=== PATIENT | female | born 1965 | race Caucasian/White ===

== ENCOUNTER 2018-04-15 17:09 | Observation (INO) ==
--- NOTE | 2018-04-15 17:38 | Emergency Department Note ---
Disposition Clinical Impression: Chest pain Qualifiers: Chest pain type: other chest pain Qualified Code(s): R07.89 - Other chest pain Disposition: Admitted As Inpatient Condition: Good Time of Disposition: 05:36 General Adult HPI - General Chief complaint: ED Chest Pain Stated complaint: CP Time Seen by Provider: 04/15/18 17:16 Source: patient, EMS Mode of arrival: EMS Limitations: no limitations Nursing Notes Reviewed: Yes Vital Signs Reviewed: Yes - History of Present Illness HPI Narrative: 52-year-old female presenting to the emergency department chief complaint of chest pain. Patient states approximately 2 hours ago she was at a [employer] lifting heavy boxes and moving around when she started having crushing substernal chest pain radiating into her left arm. Patient states she had some weakness but denies any nausea, vomiting or diaphoresis. Patient is chest pain- free at this time. Patient does state she has a significant past medical history of hypertension, hyperglycemia not on any oral medications and coronary artery disease. Denies any stent placement but does state approximately a year and a half ago she had a cardiac catheterization done that showed multiple small plaques in her vessels. Patient took a full dose aspirin at home prior to arrival. Pain Scale: 6 - Related Data Home Medications Medication Instructions Recorded Confirmed RX: Lisinopril/Hydrochlorothiazide 1 each PO DAILY 01/02/15 04/16/18 [Zestoretic 10-12.5 mg Tablet] RX: clonazePAM [Klonopin] 0.5 mg PO QID PRN MDD PRN 01/02/15 04/16/18 RX: Atorvastatin Calcium [Lipitor] 80 mg PO HS 03/26/16 04/16/18 RX: Aspirin 81 mg PO DAILY 04/09/16 04/16/18 RX: Fluticasone/Salmeterol [Advair 1 each IH PRN PRN 09/06/16 04/16/18 100-50 Diskus] RX: Nitroglycerin [Nitrostat] 0.4 mg SL Q3-5MIN PRN 09/06/16 04/16/18 RX: Omeprazole [PriLOSEC] 40 mg PO DAILY 09/06/16 04/16/18 Cetirizine HCl [All Day Allergy] 10 mg PO DAILY 12/31/16 04/16/18 Gabapentin [Neurontin] 800 mg PO TID 12/31/16 04/16/18 DULoxetine [Cymbalta] 30 mg PO DAILY 04/16/18 04/16/18 RX: Albuterol Sulfate [Albuterol 2 puff IH PRN PRN 04/16/18 04/16/18 Inhaler] RX: Lansoprazole [Prevacid] 40 mg PO DAILY 04/16/18 04/16/18 Allergies Allergy/AdvReac Type Severity Reaction Status Date / Time ciprofloxacin Allergy Hives Verified 11/08/16 13:28 rosuvastatin Allergy Cramping Verified 11/08/16 13:28 of the Muscles cefdinir [From Omnicef] AdvReac Rash Verified 11/08/16 13:28 omeprazole AdvReac Rash Verified 11/08/16 13:28 Panax ginseng AdvReac restless Verified 11/08/16 13:28 legs pantoprazole AdvReac Nausea Verified 11/08/16 13:28 ranitidine AdvReac See Verified 11/08/16 13:28 Comments Sulfa (Sulfonamide AdvReac Itching Verified 11/08/16 13:28 Antibiotics) All systems ED: reviewed and negative except as stated. Constitutional: Denies: fever Eyes: Reports: as per HPI ENT ED: Reports: as per HPI Cardiovascular: Reports: chest pain Respiratory: Denies: wheezes Gastrointestinal: Denies: abdominal pain, vomiting Genitourinary: Reports: as per HPI Musculoskeletal: Reports: as per HPI Integumentary: Reports: as per HPI Neurological: Reports: as per HPI Psychiatric: Reports: as per HPI Endocrine: Reports: as per HPI Hematological/Lymphatic: Reports: as per HPI Allergic/Immunologic: Reports: as per HPI Past Medical History - Past Medical History Attestation: Yes The following information was validated with the patient. 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 Absent: scleral icterus, conjunctival injection - ENT ENT exam: mucous membranes moist - Neck Neck exam: Present: full ROM - Chest Chest inspection: Present: symmetric chest wall rise. Absent: tenderness - Respiratory Respiratory exam: Present: normal lung sounds bilaterally. Absent: respiratory distress, wheezes - Cardiovascular Cardiovascular exam: Present: regular rate, normal rhythm, normal heart sounds - Abdominal Exam Abdominal exam: Present: soft, Non-Tender. Absent: distention, guarding, rebou nd - Extremities Exam Extremities exam: Present: full ROM - Neurological Exam Neurological exam: Present: alert, oriented X3 - Psychiatric Psychiatric exam: Present: normal affect, normal mood - Skin Skin exam: Present: warm, intact Course Course Narrative: 52-year-old female presenting for chest pain. At this time patient is chest pain-free. She is alert and oriented 3 and hemodynamically stable. He does have significant coronary artery disease, hypertension and obesity. Due to her history we will perform a chest pain rule out plan to admit her for further evaluation. Pending results. Patient agrees with this plan. - Reevaluation(s) Reevaluation #1: Patient's laboratory analysis benign at this time. Due to concerning story, history of cardiac disease and hypertension along with exertional chest pain we will plan to admit the patient for further chest pain rule out. Patient means alert and oriented 3 and hemodynamically stable. Remains chest pain-free. Patient agrees with this plan. I spoke with the hospitalist on-call who agrees to accept the patient at this time. Vital Signs Temperature 98.9 F 04/15/18 17:17 Pulse Rate 67 04/15/18 17:17 Respiratory Rate 18 04/15/18 17:17 Blood Pressure 130/86 04/15/18 17:17 O2 Sat by Pulse Oximetry 99 04/15/18 17:17 Temperature 97.8 F 04/16/18 04:26 Pulse Rate 58 04/16/18 04:26 Respiratory Rate 16 04/16/18 04:26 Blood Pressure 134/85 04/16/18 04:26 O2 Sat by Pulse Oximetry 98 04/16/18 04:26 Oxygen Delivery Oxygen Delivery Room Air Medical Decision Making - Lab Data Result diagrams: 04/15/18 17:38 04/15/18 17:38 Lab Results 04/15/18 04/15/18 Range/Units 17:38 17:38 WBC 10.4 (4.3-11.1) K/mcL RBC 4.30 (3.82-4.97) M/mcL Hgb 13.1 (11.5-15.4) g/dL Hct 39.6 (35.3-44.9) % MCV 92.1 (83.0-100.0) fL MCH 30.5 (28.0-33.3) pg MCHC 33.1 (31.6-35.5) g/dL RDW 13.2 (11.5-14.5) % Plt Count 226 (140-400) K/mcL MPV 10.9 (9.4-12.4) fL Immature Gran % 0.4 (0-4) % Seg Neutrophils % 57.0 % Lymphocytes % 35.2 % Monocytes % 5.2 % Eosinophils % 1.6 % Basophils % 0.6 % Neutrophils # 6.0 (1.6-8.9) K/mcL Lymphocytes # 3.7 (0.6-4.6) K/mcL Monocytes # 0.5 (0.0-1.3) K/mcL Eosinophils # 0.2 (0.0-0.6) K/mcL Basophils # 0.1 (0.0-0.2) K/mcL Sodium 136 (136-145) mEq/L Potassium 3.8 (3.5-5.1) mEq/L Chloride 102 (98-107) mEq/L Carbon Dioxide 28 (23-29) mEq/L BUN 15 (6-20) mg/dL Creatinine 0.71 (0.60-1.20) mg/dL Est GFR ( Amer) > 60 (> 60) Est GFR (Non-Af Amer) > 60 (> 60) BUN/Creatinine Ratio 21 (6-26) Glucose 129 H (70-105) mg/dL Calculated Osmolality 285 (280-300) Calcium 9.3 (8.6-10.3) mg/dL Troponin I < 0.03 (< 0.04) ng/mL - EKG Data EKG #1 EKG attestation: Yes I reviewed and interpreted this EKG. EKG results narrative: Sinus rhythm. Left ventricular hypertrophy. 69 bpm. TX interval 171, QRS 111, QTC 472. No sign of acute ST segment elevation or ischemia. Compared to previous EKG completed on 08/19/2017 no significant changes noted Attestation Statement - Attestation Attestation: I, Que Veras DO, examined this patient [id number] and my medical decision-making was reviewed with Dr. Nela Oneill, Resident Physician. I agree with the documented findings, disposition and treatment plan as described except to the extent set forth below. Please see my progress notes for details.
[2018-04-15 17:55] LABS: Basophils # 0.1 K/mcL (0.0-0.2); Basophils % 0.6 %; Eosinophils # 0.2 K/mcL (0.0-0.6); Eosinophils % 1.6 %; Hematocrit 39.6 % (35.3-44.9); Hemoglobin 13.1 g/dL (11.5-15.4); Immature Granulocytes % 0.4 % (0-4); Lymphocytes # 3.7 K/mcL (0.6-4.6); Lymphocytes % 35.2 %; Mean Corpuscular HGB Conc 33.1 g/dL (31.6-35.5); Mean Corpuscular Hemoglobin 30.5 pg (28.0-33.3); Mean Corpuscular Volume 92.1 fL (83.0-100.0); Mean Platelet Volume 10.9 fL (9.4-12.4); Monocytes # 0.5 K/mcL (0.0-1.3); Monocytes % 5.2 %; Platelet Count 226 K/mcL (140-400); Red Cell Distribution Width 13.2 % (11.5-14.5)
[2018-04-15 18:15] LABS: BUN/Creatinine Ratio 21 (6-26); Blood Urea Nitrogen 15 mg/dL (6-20); Calcium 9.3 mg/dL (8.6-10.3); Carbon Dioxide 28 mEq/L (23-29); Chloride 102 mEq/L (98-107); Glucose 129 mg/dL (70-105); Osmolality,Calculated 285 (280-300); Potassium 3.8 mEq/L (3.5-5.1); Sodium 136 mEq/L (136-145); Troponin I < 0.03 ng/mL (< 0.04); eGFR For Non-African Americans > 60 (> 60)
--- NOTE | 2018-04-15 18:52 | Emergency Department Note ---
Disposition Clinical Impression: Chest pain Qualifiers: Chest pain type: other chest pain Qualified Code(s): R07.89 - Other chest pain Disposition: Admitted As Inpatient Condition: Good Time of Disposition: 05:36 General Adult HPI - General Chief complaint: ED Chest Pain Stated complaint: CP Time Seen by Provider: 04/15/18 17:16 Source: patient, EMS Mode of arrival: EMS Limitations: no limitations - History of Present Illness Pain Scale: 6 - Related Data Home Medications Medication Instructions Recorded Confirmed RX: Lisinopril/Hydrochlorothiazide 1 each PO DAILY 01/02/15 04/16/18 [Zestoretic 10-12.5 mg Tablet] RX: clonazePAM [Klonopin] 0.5 mg PO QID PRN MDD PRN 01/02/15 04/16/18 RX: Atorvastatin Calcium [Lipitor] 80 mg PO HS 03/26/16 04/16/18 RX: Aspirin 81 mg PO DAILY 04/09/16 04/16/18 RX: Fluticasone/Salmeterol [Advair 1 each IH PRN PRN 09/06/16 04/16/18 100-50 Diskus] RX: Nitroglycerin [Nitrostat] 0.4 mg SL Q3-5MIN PRN 09/06/16 04/16/18 RX: Omeprazole [PriLOSEC] 40 mg PO DAILY 09/06/16 04/16/18 Cetirizine HCl [All Day Allergy] 10 mg PO DAILY 12/31/16 04/16/18 Gabapentin [Neurontin] 800 mg PO TID 12/31/16 04/16/18 DULoxetine [Cymbalta] 30 mg PO DAILY 04/16/18 04/16/18 RX: Albuterol Sulfate [Albuterol 2 puff IH PRN PRN 04/16/18 04/16/18 Inhaler] RX: Lansoprazole [Prevacid] 40 mg PO DAILY 04/16/18 04/16/18 Allergies Allergy/AdvReac Type Severity Reaction Status Date / Time ciprofloxacin Allergy Hives Verified 11/08/16 13:28 rosuvastatin Allergy Cramping Verified 11/08/16 13:28 of the Muscles cefdinir [From Omnicef] AdvReac Rash Verified 11/08/16 13:28 omeprazole AdvReac Rash Verified 11/08/16 13:28 Panax ginseng AdvReac restless Verified 11/08/16 13:28 legs pantoprazole AdvReac Nausea Verified 11/08/16 13:28 ranitidine AdvReac See Verified 11/08/16 13:28 Comments Sulfa (Sulfonamide AdvReac Itching Verified 11/08/16 13:28 Antibiotics) Constitutional: Denies: fever Eyes: Reports: as per HPI ENT ED: Reports: as per HPI Cardiovascular: Reports: chest pain Respiratory: Denies: wheezes Gastrointestinal: Denies: abdominal pain, vomiting Genitourinary: Reports: as per HPI Musculoskeletal: Reports: as per HPI Integumentary: Reports: as per HPI Neurological: Reports: as per HPI Psychiatric: Reports: as per HPI Endocrine: Reports: as per HPI Hematological/Lymphatic: Reports: as per HPI Allergic/Immunologic: Reports: as per HPI Past Medical History - Past Medical History Medical history: Reports: asthma, COPD, coronary artery disease, diabetes, GERD, hyperlipidemia, hypertension Surgical history: Reports: hysterectomy, other Psychiatric history: Reports: anxiety, depression 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 - Social History Smoking Status: Current every day smoker Smokeless Tobacco Status: No Alcohol use: Reports: none Drug use: Reports: none Physical Exam - General Limitations: no limitations General appearance: alert, in no apparent distress Course Vital Signs Temperature 98.9 F 04/15/18 17:17 Pulse Rate 67 04/15/18 17:17 Respiratory Rate 18 04/15/18 17:17 Blood Pressure 130/86 04/15/18 17:17 O2 Sat by Pulse Oximetry 99 04/15/18 17:17 Temperature 97.8 F 04/16/18 04:26 Pulse Rate 58 04/16/18 04:26 Respiratory Rate 16 04/16/18 04:26 Blood Pressure 134/85 04/16/18 04:26 O2 Sat by Pulse Oximetry 98 04/16/18 04:26 Oxygen Delivery Oxygen Delivery Room Air Medical Decision Making - Lab Data Result diagrams: 04/15/18 17:38 04/15/18 17:38 Lab Results 04/15/18 04/15/18 Range/Units 17:38 17:38 WBC 10.4 (4.3-11.1) K/mcL RBC 4.30 (3.82-4.97) M/mcL Hgb 13.1 (11.5-15.4) g/dL Hct 39.6 (35.3-44.9) % MCV 92.1 (83.0-100.0) fL MCH 30.5 (28.0-33.3) pg MCHC 33.1 (31.6-35.5) g/dL RDW 13.2 (11.5-14.5) % Plt Count 226 (140-400) K/mcL MPV 10.9 (9.4-12.4) fL Immature Gran % 0.4 (0-4) % Seg Neutrophils % 57.0 % Lymphocytes % 35.2 % Monocytes % 5.2 % Eosinophils % 1.6 % Basophils % 0.6 % Neutrophils # 6.0 (1.6-8.9) K/mcL Lymphocytes # 3.7 (0.6-4.6) K/mcL Monocytes # 0.5 (0.0-1.3) K/mcL Eosinophils # 0.2 (0.0-0.6) K/mcL Basophils # 0.1 (0.0-0.2) K/mcL Sodium 136 (136-145) mEq/L Potassium 3.8 (3.5-5.1) mEq/L Chloride 102 (98-107) mEq/L Carbon Dioxide 28 (23-29) mEq/L BUN 15 (6-20) mg/dL Creatinine 0.71 (0.60-1.20) mg/dL Est GFR ( Amer) > 60 (> 60) Est GFR (Non-Af Amer) > 60 (> 60) BUN/Creatinine Ratio 21 (6-26) Glucose 129 H (70-105) mg/dL Calculated Osmolality 285 (280-300) Calcium 9.3 (8.6-10.3) mg/dL Troponin I < 0.03 (< 0.04) ng/mL Attestation Statement - Attestation Attestation: I, Que Veras DO, examined this patient [id number] and my medical decision-making was reviewed with Dr. Nela Oneill , Resident Physician. I agree with the documented findings, disposition and treatment plan as described except to the extent set forth below. Please see my progress notes for details. 52-year-old female presents emergency room for evaluation of chest pain that is in the anterior left chest wall. Symptoms are brought on by exertion . Patient was evaluated one year ago cardiac catheterization and had a 20% lesion in the LAD. Denies any symptoms up until the events here within the last week. She is under a great deal of stress. Currently, the patient is denying chest pain. She is denying shortness of breath headache vision changes nausea vomiting or diarrhea. Denies any fevers or chills. She has not fallen or injured herself. She is otherwise in no distress. Patient is alert sitting upright in the bed. Lungs are clear. Heart is regular. Abdomen is soft. No pulsatile masses or lesions are noted. Extremities appear to be normal. Patient will have cardiac evaluation completed today with CBC chemistry troponin and BNP. Chest x-ray will be resulted as well. Aspirin will be given. Patient does have moderate risk heart score as well as no recent evaluation for cardiac related issues. Disposition to be determined once full workup and treatment course have been established. See detailed documentation the physical exam, medical intervention, medical decision-making and disposition in the resident physician's note. No critical care provider the patient's treatment course at this time. 1845 Labs otherwise unremarkable. Troponin is negative. Patient will be discussed with the hospitalist for continuation of care in the inpatient setting with possible stress test versus echocardiogram. Patient's EKG is stable. We will continue to monitor here until hospitalist has been contacted admission processes established.
[2018-04-15] MEDS ORDERED: *HR* HYDROcodone/Acet 5/325 mg TABLET PO PRN (20:47)
[2018-04-15] MEDS ORDERED: Naloxone 0.4 MG/ML INJ IVP PRN (20:47)
[2018-04-15] MEDS ORDERED: Acetaminophen 325 MG TABLET PO PRN (20:47)
[2018-04-15] MEDS ORDERED: D5% in Water 1,000 ML IVC PRN (20:59)
[2018-04-15] MEDS ORDERED: *HR* Dextrose 50 % in Water (Syg) 50 ML SYRINGE IVP PRN (20:59)
[2018-04-15] MEDS ORDERED: Dextrose Gel 15 GM/37.5 ML TUBE PO PRN ×2 (20:59)
[2018-04-15] MEDS ORDERED: Insulin LISPRO 300 UNITS/3 ML VIAL SQ SCH (21:00)
--- NOTE | 2018-04-15 21:29 | Internal Med History&Physical ---
Date of Encounter: 04/15/18 Time of Encounter: 20:00 Internal Medicine - H&P: HPI Chief complaint: CP Admitted From: Emergency Dept Plans for Post Hospital Care: Home History of present illness: Ms. Rodarte is a 52 year old female w/PMH of asthma, COPD, CAD, diabetes controlled with diet, GERD, HLD, HTN, current tobacco abuse, chronic back pain r/t degenerative disc disease, anxiety, and depression presents from the ED w/CC of CP that began at aprox 14:30 today when pt. was lifting boxes at a local food bank. Pt. reports pain as sharp and stabbing in her left chest that was intermittent with radiation to her left shoulder. Accompanying symptoms: Headache. Aggravating factor: Exertion. Alleviating factors: None. Patient reports cardiac catheterization previously on 09/06/16 without stent placement. Patient reported 20% blockage at the time. Patient denies recent illness, fever, chills, nausea, vomiting, diaphoresis, changes in vision, unusual bleeding, abdominal pain, diarrhea, constipation, shortness of breath, cough, chest congestion, dizziness, lightheadedness, numbness, tingling, pre-syncope, or syncope. Past Med Surg Social Fam HX - Past Medical History Source: patient, old records reviewed, obtained from family Medical history: asthma, COPD, coronary artery disease, diabetes, GERD, hyperlipidemia, hypertension Additional medical history: SLEEP APNEA Psychiatric history: anxiety, depression - Past Surgical History Surgical History: hysterectomy (Partial), other Additional surgical history: SINUS SURGERY. carpal tunnel surgery - Social History Smoking Status: Current every day smoker Packs per day: 1 PPD Smokeless Tobacco Status: No Alcohol use: none Drug use: none Current living situation: Home, With Family Activity Level: Independent ambulation Recent Out of Country Travel Within the Last 8 Weeks: No Exposure or Possible Exposure to Illness During Travel: No - Family History Father Race: Family Member Ethnicity: Non- Living Status: Still Living Hx Family Cardiac Disorders: Yes (Aneurysm, HLD, HTN) Mother Race: Family Member Ethnicity: Non- Living Status: Still Living Hx Family Cardiac Disorders: Yes (Stents x2, CAD, HLD, HTN) Hx Family Genitourinary Disorders: Yes (CKD) Hx Family Endocrine Disorder: Yes (DM) Brother Race: Family Member Ethnicity: Non- Living Status: Still Living Hx Family Cardiac Disorders: Yes (HTN, HLD) Hx Family GI Disorders: Yes (GERD) Internal Medicine - H&P: Meds Lisinopril/Hydrochlorothiazide [Zestoretic 10-12.5 mg Tablet] 1 each PO QAM 01/02/15 [History] clonazePAM [Klonopin] 1 mg PO QID PRN 01/02/15 [History] Albuterol Sulfate [Albuterol Inhaler] 2 puff IH Q4HR #1 hfa.aer.ad 05/29/15 [Rx] Atorvastatin Calcium [Lipitor] 80 mg PO HS 03/26/16 [History] Gabapentin [Neurontin] 900 mg PO TID 03/26/16 [History] Aspirin 81 mg PO DAILY 04/09/16 [History] Fluticasone/Salmeterol [Advair 100-50 Diskus] 1 each IH DAILY 09/06/16 [History] HYDROcodone/Acet 10/325 mg [[place] 10-325 mg] 1 tab PO Q6HR PRN 09/06/16 [History] Isosorbide MONOnitrate (24 HR) [Imdur] 30 mg PO DAILY #30 tab.er.24h 09/06/16 [Rx] Nitroglycerin [Nitrostat] 0.4 mg SL Q3-5MIN PRN 09/06/16 [History] Omeprazole [PriLOSEC] 40 mg PO DAILY 09/06/16 [History] Ubidecarenone [Coq10] 400 mg PO DAILY 09/06/16 [History] Lansoprazole [Prevacid] 15 mg PO BID #30 tab.rap.dr 12/24/16 [Rx] Ondansetron HCl [Zofran] 4 mg PO TID #21 tablet 12/24/16 [Rx] Cetirizine HCl [All Day Allergy] 10 mg PO DAILY 12/31/16 [History] FLUoxetine HCl [PROzac] 20 mg PO DAILY 12/31/16 [History] Gabapentin [Neurontin] 800 mg PO TID 12/31/16 [History] Metoprolol XL (24 HR) Succ [Toprol XL] 25 mg PO DAILY 12/31/16 [History] Naproxen [Naprosyn] 500 mg PO BID #10 tablet 07/02/17 [Rx] Albuterol Sulfate [Albuterol Inhaler] 2 puff IH Q4HR #1 hfa.aer.ad 08/19/17 [Rx] Azithromycin [Azithromycin 6-Tab Pack] 250 mg PO PER PKG DI #6 tab 08/19/17 [Rx] Ipratropium/Albuterol Neb [Duoneb] 3 ml IH Q6HR #120 vial.neb 08/19/17 [Rx] predniSONE [PredniSONE] 60 mg PO DAILY 5 Days tablet 08/19/17 [Rx] Allergy/AdvReac Type Severity Reaction Status Date / Time ciprofloxacin Allergy Hives Verified 11/08/16 13:28 rosuvastatin Allergy Cramping Verified 11/08/16 13:28 of the Muscles cefdinir [From Omnicef] AdvReac Rash Verified 11/08/16 13:28 omeprazole AdvReac Rash Verified 11/08/16 13:28 Panax ginseng AdvReac restless Verified 11/08/16 13:28 legs pantoprazole AdvReac Nausea Verified 11/08/16 13:28 ranitidine AdvReac See Verified 11/08/16 13:28 Comments Sulfa (Sulfonamide AdvReac Itching Verified 11/08/16 13:28 Antibiotics) All Systems PM: A 10-system review of systems was performed and is negative for pertinent findings except as documented above in the HPI. - Constitutional Constitutional: as per HPI, no chills, no fever(s), no night sweats - EENT Eyes: no change in vision, no discharge, no pain, no photophobia Ears: no ear discharge, no ear pain, no tinnitus Nose, mouth and throat: no dysphagia, no nasal discharge, no neck pain, no sore throat - Breasts Breasts: as per HPI - Cardiovascular Cardiovascular ROS IM: as per HPI, chest pain, no diaphoresis, no dyspnea, no lightheadedness, no palpitations, no syncope - Respiratory Respiratory: no cough, no dyspnea, no wheezing, no excessive phlegm production - Gastrointestinal Gastrointestinal: no abdominal pain, no diarrhea, no hematemesis, no hematochezia, no melena, no nausea, no vomiting - Genitourinary Genitourinary: no change in urinary stream, no dysuria, no flank pain, no hematuria Menstruation: as per HPI, post hysterectomy (Partial) - Musculoskeletal Musculoskeletal ROS IM: as per HPI, back pain, no numbness, no tingling - Integumentary Integumentary IM: as per HPI, no rash, no unusual bruising - Neurological Neurological ROS: no confusion, no convulsions, no focal weakness, no numbness, no tingling, no tremor(s) - Psychiatric Psychiatric: as per HPI - Endocrine Endocrine IM: as per HPI - Hematologic/Lymphatic Hematologic/Lymphatic: no easy bruising - Allergic/Immunologic Allergic/Immunologic: as per HPI - Constitutional Vitals: Temp Pulse Resp BP Pulse Ox 98.9 F 67 18 120/73 99 04/15/18 17:17 04/15/18 17:17 04/15/18 19:41 04/15/18 19:41 04/15/18 17:17 General appearance: Present: cooperative, A&O X 3, pleasant, no acute distress, obese, answers questions appropriately Exam: Pt. examined at bedside. Pt. resting in bed and reporting no CP or SOB during exam. Pt. reports she cannot take nitroglycerin d/t SOLARES and that morphine causes anaphylaxis/near in her mother who has CAD. Pt. denies any sx or com plaints during exam. VS: 97.7F temp, HR 65, RR 16, BP 108/60, SPO2 97% on room air. - Head Head exam: Present: atraumatic, normocephalic - Eye Eye exam: Present: PERRL, conjuntiva pink, sclera anicteric Pupils: Present: PERRL - ENT ENT exam: Present: normal exam - Neck Neck exam general surgery: Present: normal inspection, supple, trachea midline. Absent: lymphadenopathy - Respiratory Respiratory exam: Present: CTAB. Absent: accessory muscle use, rales, rhonchi, wheezes - Cardiovascular Cardiovascular exam: Present: RRR, +S1, +S2. Absent: diastolic murmur, gallop, rubs, systolic murmur - GI/Abdominal GI/Abdominal exam: Present: normal bowel sounds, soft, no peritoneal signs. Absent: distended, tenderness - Rectal Rectal exam: Present: deferred - Additional comments: exam deferred. - Extremities Exam Extremities exam: Present: warm, radial pulses palpable and symmetrical. Absent: calf tenderness, cyanotic, pedal edema - Back Exam Back exam: Present: normal inspection - Neurological Exam Neurological exam: Present: alert, CN II-XII intact, oriented X3, no focal deficits. Absent: pronater drift, facial droop, speech deficit - Psychiatric Psychiatric exam: Present: normal affect, normal mood - Skin Skin exam: Present: dry, intact Internal Med - H&P Results - Labs CBC & Chem 7: 04/15/18 17:38 04/15/18 17:38 Labs: Short CBC 04/15/18 Range/Units 17:38 WBC 10.4 (4.3-11.1) K/mcL Hgb 13.1 (11.5-15.4) g/dL Hct 39.6 (35.3-44.9) % Plt Count 226 (140-400) K/mcL Neutrophils # 6.0 (1.6-8.9) K/mcL BMP 04/15/18 17:38 Sodium 136 Potassium 3.8 Chloride 102 Carbon Dioxide 28 BUN 15 Creatinine 0.71 Glucose 129 H Calcium 9.3 Cardiac Enzymes 04/15/18 Range/Units 17:38 Troponin I < 0.03 (< 0.04) ng/mL - EKG Data EKG shows normal: sinus rhythm - EKG Data Prior EKG available for review: no EKG comments: 04/15/18 21:37 EKG dated 04/15/18 shows sinus rhythm with left ventricular hypertrophy and anterior Q waves possibly due to LVH. - Impressions ITS Impressions Chest X-Ray 04/15/18 17:25 IMPRESSION: No acute cardiopulmonary disease. D/ / Shirley Ramirez MD / Shirley Ramirez MD Interpreting Provider: Shirley Ramirez MD - Diagnostic Studies Chest x-ray Additional comments: Impressions Chest X-Ray 04/15/18 17:25 IMPRESSION: No acute cardiopulmonary disease. D/ / Shirley Ramirez MD / Shirley Ramirez MD Interpreting Provider: Shirley Ramirez MD - Assessment and plan (1) Chest pain Current Visit: Yes Status: Acute Assessment and plan: Acute CP that began at aprox 14:30 today when pt. was lifting boxes at a local food bank. Pt. reports pain as sharp and stabbing in her left chest that was int ermittent with radiation to her left shoulder. Accompanying symptoms: Headache. Aggravating factor: Exertion. Alleviating factors: None. Patient reports cardiac catheterization previously on 09/06/16 without stent placement. Patient reported 20% blockage at the time. Extensive familial hx of CAD. Initial troponin <0.03. Will trend. ASA. 80 mg of Lipitor now and continue daily HS. No SL nitro d/t SOLARES. No morphine d/t possible allergic rxn. Continuous cardiac telemetry. EKG today shows sinus rhythm with left ventricular hypertrophy and anterior Q waves possibly due to LVH. Echocardiogram. NPO at midnight for nuclear pharm stress test if troponins remain WNL. Consider adding Cardiology co nsult if troponins, echocardiogram, and/or stress test results abnormal. Pt. is high risk for cardiac event and further morbidity d/t CP w/exertion, previous [facility] showing early blockage, extensive familial hx of CAD; and risk factors of HLD, HTN, DM, obesity, and current tobacco abuse. Observation. Qualifiers: Chest pain type: other chest pain Qualified Code(s): R07.89 - Other chest pain; R07.8 - Other chest pain (2) Tobacco abuse counseling Current Visit: Yes Status: Acute Assessment and plan: Acute tobacco abuse counseling >10 minutes. Discussed the dangers of smoking on vasculature and how this can lead to possible RI as well as methods and benefits for cessation. Pt. declined nicotine patch for now but I informed her that is an option for her. (3) CAD (coronary artery disease) Current Visit: Yes Status: Chronic Assessment and plan: Hx of chronic CAD. Previous [facility] showed 20% blockage. No stents placed. Hx of HLD and HTN. Continue pts. Low-dose aspirin, Lipitor, Imdur, lisinopril/hydrochlorothiazide, and metoprolol. Qualifiers: Coronary Disease-Associated Artery/Lesion type: [place] artery [place] vs. transplanted heart: [place] heart Associated angina: angina presence unspecified Qualified Code(s): I25.10 - Atherosclerotic heart disease of [place] coronary artery without angina pectoris (4) COPD (chronic obstructive pulmonary disease) Current Visit: Yes Status: Chronic Assessment and plan: Hx of chronic COPD. Stable. Pt. is current smoker of 1 PPD. Xopenex IH Q6HR. Supplemental O2 w/titration and SpO2 monitoring. Qualifiers: COPD type: unspecified COPD Qualified Code(s): J44.9 - Chronic obstructive pulmonary disease, unspecified (5) Asthma Current Visit: Yes Status: Chronic Assessment and plan: Hx of mild, intermittent asthma. Continue pts. inhalers. Xopenex IH. Qualifiers: Asthma severity: mild Asthma persistence: intermittent Asthma complication type: uncomplicated Qualified Code(s): J45.20 - Mild intermittent asthma, uncomplicated (6) HTN (hypertension) Current Visit: Yes Status: Chronic Assessment and plan: Hx of chronic HTN. Monitor pt. and VS. Continue pts. Imdur, lisinopril/hydrochlorothiazide, and metoprolol XL. Qualifiers: Hypertension type: essential hypertension Qualified Code(s): I10 - Essential (primary) hypertension (7) HLD (hyperlipidemia) Current Visit: Yes Status: Chronic Assessment and plan: Hx of chronic HLD. Lipid panel in a.m. labs. Continue pts. Lipitor HS. Qualifiers: Hyperlipidemia type: pure hypercholesterolemia Qualified Code(s): E78.00 - Pure hypercholesterolemia, unspecified; E78.0 - Pure hypercholesterolemia (8) GERD (gastroesophageal reflux disease) Current Visit: Yes Status: Chronic Assessment and plan: Hx of chronic GERD. Continue pts. Prevacid. Zofran IVP for N/V PRN. Qualifiers: Esophagitis presence: esophagitis presence not specified Qualified Code(s): K21.9 - Gastro-esophageal reflux disease without esophagitis (9) Diabetes Current Visit: Yes Status: Chronic Assessment and plan: Hx of pre-diabetes that is currently controlled w/diet. Pt. reports having steroid injections for her chronic degenerative disc disease which causes her to become hyperglycemic. BG checks ACHS. A1c in a.m. labs. Low-dose correction sliding scale insulin ordered with hypoglycemic protocol. Qualifiers: Diabetes mellitus type: type 2 Diabetes mellitus terminal clerk insulin use: without terminal clerk use Diabetes mellitus complication status: without complication Qualified Code(s): E11.9 - Type 2 diabetes mellitus without complications (10) Obesity (BMI 30-39.9) Current Visit: Yes Status: Chronic Assessment and plan: Hx of chronic obesity. BMI currently 37.2. Encourage lifestyle and dietary modifications. (11) Back pain Current Visit: Yes Status: Chronic Assessment and plan: Hx of chronic back pain related to degenerative disc disease. Will use stairstep pain medications for pain management. Qualifiers: Back pain location: low back pain Chronicity: chronic Back pain laterality: midline Sciatica presence: unspecified whether sciatica present Qualified Code(s): M54.5 - Low back pain; G89.29 - Other chronic pain (12) Anxiety and depression Current Visit: Yes Status: Chronic Assessment and plan: Hx of chronic anxiety and depression. Continue patient's Klonopin and Prozac when medications are reconciled. (13) DVT prophylaxis Current Visit: Yes Status: Acute Assessment and plan: Heparin 5,000 units SQ Q8HR for DVT prophylaxis. Monitor pt. for signs of bleeding. - Time Spent With Patient Total time spent is greater than 50% in coordination of care (as documented) at patient's floor/unit and/or counseling patient: Greater than 35 minutes
[2018-04-15] MEDS: *HR* OxyCODONE Immed Rel 5 MG TABLET PO PRN (23:16)
[2018-04-15] MEDS ORDERED: Ondansetron 4 MG/2 ML VIAL IVP PRN (23:50)
[2018-04-16] MEDS: Levalbuterol Neb 1.25 MG/3 ML IH SCH ×3 (00:34→11:07)
[2018-04-16] MEDS ORDERED: clonazePAM 1 MG TABLET PO PRN (01:46)
[2018-04-16] MEDS ORDERED: NON-FORMULARY MEDICATION 1 EACH EACH (Fluticasone/Salmeterol [Advair 100-50 Diskus] 1 EACH IH PRN (01:46)
[2018-04-16 05:54] LABS: Basophils # 0.1 K/mcL (0.0-0.2); Basophils % 0.6 %; Eosinophils # 0.2 K/mcL (0.0-0.6); Eosinophils % 2.4 %; Hematocrit 39.1 % (35.3-44.9); Hemoglobin 12.8 g/dL (11.5-15.4); Immature Granulocytes % 0.4 % (0-4); Lymphocytes # 3.7 K/mcL (0.6-4.6); Lymphocytes % 40.6 %; Mean Corpuscular HGB Conc 32.7 g/dL (31.6-35.5); Mean Corpuscular Hemoglobin 30.2 pg (28.0-33.3); Mean Corpuscular Volume 92.2 fL (83.0-100.0); Mean Platelet Volume 10.9 fL (9.4-12.4); Monocytes # 0.6 K/mcL (0.0-1.3); Monocytes % 6.1 %; Neutrophils # 4.5 K/mcL (1.6-8.9); Platelet Count 210 K/mcL (140-400); Red Blood Count 4.24 M/mcL (3.82-4.97); Red Cell Distribution Width 13.2 % (11.5-14.5); Segmented Neutrophils % 49.9 %
[2018-04-16] MEDS ORDERED: Regadenoson 0.4 MG/5 ML SYRINGE IVP ONE (05:56)
[2018-04-16 06:10] LABS: BUN/Creatinine Ratio 24 (6-26); Blood Urea Nitrogen 16 mg/dL (6-20); Calcium 9.2 mg/dL (8.6-10.3); Carbon Dioxide 29 mEq/L (23-29); Chloride 104 mEq/L (98-107); Chol/HDL Ratio 7.2 (0-4.9); Cholesterol 230 mg/dL (< 200); Glucose 162 mg/dL (70-105); HDL Cholesterol 32 mg/dL (40-59); LDL Cholesterol,Calculated 133 mg/dL (0-99); Osmolality,Calculated 291 (280-300); Potassium 3.9 mEq/L (3.5-5.1); Sodium 138 mEq/L (136-145); Triglycerides 326 mg/dL (< 150); eGFR For Non-African Americans > 60 (> 60)
[2018-04-16] MEDS: Insulin LISPRO 300 UNITS/3 ML VIAL SQ SCH ×2 (08:12→12:20)
[2018-04-16 08:32] LABS: Estimated Average Glucose 223 mg/dl; Hemoglobin A1C 9.4 %
[2018-04-16] MEDS ORDERED: LANSOPRAZOLE 40 MG PO SCH (09:00)
[2018-04-16] MEDS ORDERED: Aspirin Enteric Coated 81 MG Tablet PO SCH (09:00)
[2018-04-16] MEDS ORDERED: Gabapentin 400 MG CAPSULE PO SCH (09:00)
[2018-04-16] MEDS ORDERED: Loratadine 10 MG TABLET PO SCH (09:00)
--- NOTE | 2018-04-16 09:17 | Electrocardiograph Report ---
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
--- NOTE | 2018-04-16 09:18 | Electrocardiograph Report ---
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
[2018-04-16] MEDS: *HR* OxyCODONE Immed Rel 5 MG TABLET PO PRN (09:37)
[2018-04-16 11:22] VITALS: BP 124/62
[2018-04-16] MEDS ORDERED: *HR* Heparin 5,000 UNIT/ML VIAL SQ SCH (12:00)
[2018-04-16] MEDS ORDERED: CETIRIZINE HCL 10 MG PO PRN (13:03)
[2018-04-16] MEDS ORDERED: Fluticasone Propionate Nasal 50 MCG/SPRAY BOTTLE NS PRN (13:03)
[2018-04-16] MEDS ORDERED: Nitroglycerin 0.4 MG TAB.SUBL SL PRN (13:03)
--- NOTE | 2018-04-16 14:37 | Discharge Summary ---
- NOTES TO OUTPATIENT PROVIDER Notes to Outpatient Provider: Follow with PCP in one week. Please quit smoking tobacco. Orders not resulted at time of discharge: Pending orders 04/15/18 05:31 NM cheikh perf SPECT multi [NM] Routine 04/17/18 04:00 Basic Metabolic Panel AM 0400 Complete Blood Count [HEME] AM 0400 04/18/18 04:00 Basic Metabolic Panel AM 0400 Complete Blood Count [HEME] AM 0400 Date of Encounter: 04/16/18 Time of Encounter: 14:35 - Discharge Diagnosis (1) Chest pain Priority: Primary Status: Acute Qualifiers: Chest pain type: other chest pain Qualified Code(s): R07.89 - Other chest pain; R07.8 - Other chest pain (2) Diabetes Priority: Secondary Status: Chronic Qualifiers: Diabetes mellitus type: type 2 Diabetes mellitus intermediate teacher insulin use: without custodial use Diabetes mellitus complication status: without complication Qualified Code(s): E11.9 - Type 2 diabetes mellitus without complications (3) DVT prophylaxis Priority: Secondary Status: Acute (4) Asthma Priority: Secondary Status: Chronic Qualifiers: Asthma severity: mild Asthma persistence: intermittent Asthma complication type: uncomplicated Qualified Code(s): J45.20 - Mild intermittent asthma, uncomplicated (5) COPD (chronic obstructive pulmonary disease) Priority: Secondary Status: Chronic Qualifiers: COPD type: unspecified COPD Qualified Code(s): J44.9 - Chronic obstructive pulmonary disease, unspecified (6) CAD (coronary artery disease) Priority: Secondary Status: Chronic Qualifiers: Coronary Disease-Associated Artery/Lesion type: [place] artery [place] vs. transplanted heart: [place] heart Associated angina: angina presence unspecified Qualified Code(s): I25.10 - Atherosclerotic heart disease of [place] coronary artery without angina pectoris (7) GERD (gastroesophageal reflux disease) Priority: Secondary Status: Chronic Qualifiers: Esophagitis presence: esophagitis presence not specified Qualified Code(s): K21.9 - Gastro-esophageal reflux disease without esophagitis (8) HTN (hypertension) Priority: Secondary Status: Chronic Qualifiers: Hypertension type: essential hypertension Qualified Code(s): I10 - Essential (primary) hypertension (9) HLD (hyperlipidemia) Priority: Secondary Status: Chronic Qualifiers: Hyperlipidemia type: pure hypercholesterolemia Qualified Code(s): E78.00 - Pure hypercholesterolemia, unspecified; E78.0 - Pure hypercholesterolemia (10) Anxiety and depression Priority: Secondary Status: Chronic (11) Obesity (BMI 30-39.9) Priority: Secondary Status: Chronic (12) Back pain Priority: Secondary Status: Chronic Qualifiers: Back pain location: low back pain Chronicity: chronic Back pain laterality: midline Sciatica presence: unspecified whether sciatica present Qualified Code(s): M54.5 - Low back pain; G89.29 - Other chronic pain (13) Tobacco abuse counseling Priority: Secondary Status: Acute Hospital course: Ms. Rodarte is a 52 year old female w/PMH of asthma, COPD, CAD, diabetes controlled with diet, GERD, HLD, HTN, current tobacco abuse, chronic back pain r/t degenerative disc disease, anxiety, and depression pt present ED w/CC of CP while she was lifting boxes at a local food bank. Pt. reports pain as sharp and stabbing in her left chest that was intermittent with radiation to her left shoulder. Patient was admitted in the hospital and placed on certified surgical technician. Her serial troponin came back is negative. Her EKG did not show any acute ischemic changes. She did go for nuclear stress test which came back is negative for any ischemia/infarction. So will discharge her home in a stable condition. I did career placement services counselor the patient to quit smoking tobacco. - Time Spent with Patient Total time spent providing and/or coordinating discharge services: - Discharge Medications Prescriptions: Nicotine Patch [Nicoderm] 14 mg TD DAILY #30 patch.td24 Home Medications: Lisinopril/Hydrochlorothiazide [Zestoretic 10-12.5 mg Tablet] 1 each PO DAILY 01/02/15 [History] clonazePAM [Klonopin] 0.5 mg PO BID PRN MDD PRN 01/02/15 [History] Atorvastatin Calcium [Lipitor] 80 mg PO HS 03/26/16 [History] Aspirin 162 mg PO DAILY 04/09/16 [History] Nitroglycerin [Nitrostat] 0.4 mg SL Q5M PRN 09/06/16 [History] Gabapentin [Neurontin] 800 mg PO TID 12/31/16 [History] Albuterol Sulfate [Ventolin Hfa] 2 puff IN Q6H PRN 04/16/18 [History] Cetirizine HCl 10 mg PO DAILY PRN 04/16/18 [History] DULoxetine [Cymbalta] 30 mg PO DAILY 04/16/18 [History] Fluticasone Propionate Nasal [Flonase] 1 spray NS DAILY PRN 04/16/18 [History] Montelukast [Singulair] 10 mg PO QPM PRN 04/16/18 [History] Mv,Ca,Min/Folic Acid/Vit K1 [One-A-Day Women's 50 Plus Tab] 1 tab PO DAILY 04/16/18 [History] Nicotine Patch [Nicoderm] 14 mg TD DAILY #30 patch.td24 04/16/18 [Rx] Omeprazole [PriLOSEC] 40 mg PO DAILY 04/16/18 [History] dilTIAZem HCl [Diltiazem 24Hr ER] 120 mg PO DAILY 04/16/18 [History] Allergies/Adverse Reactions: Allergy/AdvReac Type Severity Reaction Status Date / Time ciprofloxacin Allergy Itching Verified 04/16/18 11:07 cefdinir [From Omnicef] AdvReac Itching Verified 04/16/18 11:07 Panax ginseng AdvReac See Verified 04/16/18 11:07 Comments pantoprazole AdvReac Nausea Verified 11/08/16 13:28 ranitidine AdvReac See Verified 11/08/16 13:28 Comments rosuvastatin AdvReac "RESTLESS Verified 04/16/18 11:29 LEGS" Sulfa (Sulfonamide AdvReac Itching Verified 11/08/16 13:28 Antibiotics) Date of admission: 04/15/18 19:21 Primary care physician: Sophie Moreau DO Consults: 04/15/18 20:49 Consult to Cake Washer [CONS] Routine Reason for SW Consult: Please assess patient for possible home needs for post-discharge planning. - Constitutional Vitals: Temp Pulse Resp BP Pulse Ox 97.6 F 63 17 124/62 96 04/16/18 11:16 04/16/18 11:16 04/16/18 11:16 04/16/18 11:16 04/16/18 11:16 General appearance: Present: cooperative, A&O X 3, pleasant, no acute distress, obese, answers questions appropriately Exam: Gen: Alert, awake, Oriented to time,place and person Chest: Diminished breath sounds B/L, No wheezing, No crackles, No rales Heart: S1S2+ RRR No murmurs Abd: Soft, NT, BS +, No organomegaly Ext: No edema, pulses are palpable, No calf tenderness Neuro : Benign findings Skin: No rash. - Patient Status Disposition: Home, Self-Care Condition: Good Overall status at discharge: patient is back to baseline - Discharge Instructions Follow Up With: Connor Desai [Resident] - 04/17/18 4:00 pm - Diet and Activity Activity: increase activity as tolerated Diet: low salt diet
[2018-04-16] MEDS ORDERED: NON-FORMULARY MEDICATION 1 EACH EACH (Atorvastatin Calcium [Lipitor] 80 MG) PO SCH (21:00)
[2018-04-17] MEDS ORDERED: Diltiazem CD (24hr) 120 MG CAPSULE PO SCH (09:00)
[2018-04-17] MEDS ORDERED: Multivit/Ca/Min/Fe/FA 1 TAB TABLET PO SCH (09:00)
== END 2018-04-16 15:41 | disposition home or self-care (01) ==
LOC: EMEROOARM 17:09 → 3BNU 17:09
PROVIDERS: ADMIT Internal Medicine; ATTEND Internal Medicine

== ENCOUNTER 2018-05-20 18:39 | Observation (INO) ==
[2018-05-20] MEDS ORDERED: predniSONE 20 MG TABLET PO ONE (19:43)
[2018-05-20] MEDS ORDERED: Ipratropium/Albuterol Neb 3 ML IH ONE (19:43)
--- NOTE | 2018-05-20 19:58 | Emergency Department Note ---
Disposition Clinical Impression: Acute exacerbation of chronic obstructive airways disease, NSTEMI (non-ST elevated myocardial infarction) Disposition: Admitted As Inpatient Condition: Undetermined Time of Disposition: 22:17 SOB HPI - General Chief Complaint: ED Shortness of Breath/Dyspnea Stated Complaint: BRETT Time Seen by Provider: 05/20/18 19:28 Source: patient Mode of arrival: ambulatory Limitations: no limitations Nursing Notes Reviewed: Yes Vital Signs Reviewed: Yes - History of Present Illness 53-year-old female history of CAD, hypertension, hyperlipidemia, smoking, diabetes, arrives to the emergency department complaining of left-sided chest discomfort, pleuritic in nature as well as shortness of breath. The patient states that she had a similar complaint but was a little bit more different roughly 1 month ago where the patient was admitted to the hospital receive stress testing. This was negative. The patient was discharged home in stable condition. Patient states that she recently lost her mother and had a feel for her mother 1 day ago. The patient states this is when this pain started. She denies any radiation of the pain. No unilateral leg swelling, history of DVT or PE, recent surgeries or immobilizations, hemoptysis. Patient denies any nausea, vomiting, fevers, chills. Patient does have a mild cough. No other acute complaints noted. The patient has audible wheezing that is scattered on auscultation. She is noted to have stable vital signs without any hypoxia or tachycardia. No other acute complaints noted at this time. - Related Data Home Medications Medication Instructions Recorded Confirmed RX: Lisinopril/Hydrochlorothiazide 1 each PO DAILY 01/02/15 04/16/18 [Zestoretic 10-12.5 mg Tablet] RX: clonazePAM [Klonopin] 0.5 mg PO BID PRN MDD PRN 01/02/15 04/16/18 RX: Atorvastatin Calcium [Lipitor] 80 mg PO HS 03/26/16 04/16/18 RX: Aspirin 162 mg PO DAILY 04/09/16 04/16/18 RX: Nitroglycerin [Nitrostat] 0.4 mg SL Q5M PRN 09/06/16 04/16/18 RX: Gabapentin [Neurontin] 800 mg PO TID 12/31/16 04/16/18 RX: Albuterol Sulfate [Ventolin 2 puff IN Q6H PRN 04/16/18 04/16/18 Hfa] RX: Cetirizine HCl 10 mg PO DAILY PRN 04/16/18 04/16/18 RX: DULoxetine [Cymbalta] 30 mg PO DAILY 04/16/18 04/16/18 RX: Fluticasone Propionate Nasal 1 spray NS DAILY PRN 04/16/18 04/16/18 [Flonase] RX: Montelukast [Singulair] 10 mg PO QPM PRN 04/16/18 04/16/18 RX: Mv,Ca,Min/Folic Acid/Vit K1 1 tab PO DAILY 04/16/18 04/16/18 [One-A-Day Women's 50 Plus Tab] RX: Omeprazole [PriLOSEC] 40 mg PO DAILY 04/16/18 04/16/18 RX: dilTIAZem HCl [Diltiazem 24Hr 120 mg PO DAILY 04/16/18 04/16/18 ER] Previous Rx's Medication Instructions Recorded RX: Nicotine Patch [Nicoderm] 14 mg TD DAILY #30 patch.td24 04/16/18 Allergies Allergy/AdvReac Type Severity Reaction Status Date / Time ciprofloxacin Allergy Itching Verified 05/20/18 18:42 cefdinir [From Omnicef] AdvReac Itching Verified 05/20/18 18:42 Panax ginseng AdvReac See Verified 05/20/18 18:42 Comments pantoprazole AdvReac Nausea Verified 05/20/18 18:42 ranitidine AdvReac See Verified 05/20/18 18:42 Comments rosuvastatin AdvReac "RESTLESS Verified 05/20/18 18:42 LEGS" Sulfa (Sulfonamide AdvReac Itching Verified 05/20/18 18:42 Antibiotics) All systems ED: reviewed and negative except as stated. Constitutional: Denies: fever, chills, weakness ENT ED: Denies: dysphagia Cardiovascular: Reports: chest pain, dyspnea on exertion. Denies: orthopnea, edema, syncope Respiratory: Reports: cough, dyspnea. Denies: wheezes, sputum production Gastrointestinal: Denies: abdominal pain, nausea, vomiting Genitourinary: Denies: urgency, dysuria Musculoskeletal: Denies: back pain Integumentary: Denies: rash Neurological: Denies: headache Past Medical History - Past Medical History Attestation: Yes The following information was validated with the patient. Source: patient, old records reviewed Medical history: Reports: asthma, COPD, coronary artery disease, diabetes, GERD, hyperlipidemia, hypertension Surgical history: Reports: hysterectomy, other Psychiatric history: Reports: anxiety, depression [employer] history: Reports: no [employer] history - Social History Smoking Status: Current every day smoker Smokeless Tobacco Status: No Alcohol use: Reports: none Drug use: Reports: none Physical Exam - General Limitations: no limitations General appearance: alert, in no apparent distress - Head Head exam: atraumatic, normocephalic, normal inspection - Eye Eye exam: Present: normal appearance, PERRL, EOMI - ENT ENT exam: normal exam, normal oropharynx, mucous membranes moist - Neck Neck exam: Present: normal inspection, full ROM, trachea midline - Chest Chest inspection: Present: normal inspection, symmetric chest wall rise - Respiratory Respiratory exam: Present: wheezes (diffuse, mild) - Cardiovascular Cardiovascular exam: Present: regular rate, normal rhythm, normal heart sounds - Abdominal Exam Abdominal exam: Present: soft - Extremities Exam Extremities exam: Present: normal inspection, full ROM, normal capillary refill. Absent: tenderness, pedal edema - Neurological Exam Neurological exam: Present: alert, oriented X3 - Skin Skin exam: Present: warm, dry, intact, normal color Course Vital Signs Temperature 97.7 F 05/20/18 18:42 Pulse Rate 76 05/20/18 18:42 Respiratory Rate 20 05/20/18 18:42 Blood Pressure 126/76 05/20/18 18:42 O2 Sat by Pulse Oximetry 98 05/20/18 18:42 Temperature 98.7 F 05/20/18 19:36 Pulse Rate 64 05/20/18 21:55 Respiratory Rate 22 05/20/18 21:55 Blood Pressure 107/69 05/20/18 21:55 O2 Sat by Pulse Oximetry 98 05/20/18 21:55 Oxygen Delivery Oxygen Delivery Room Air Shortness of Breath/Dyspnea - MDM Narrative Medical decision making narrative: Patient's evaluation in the emergency department initially given strict findings concerning for a COPD exacerbation. Given the patient's chest pain and cardiovascular risk we did obtain troponin, EKG and basic laboratory testing cleaning a CBC and a BMP. The patient stated that she recently lost her mother but her pain was easily reproducible. The patient recently had a cardiac workup roughly 1 month ago going stress testing was negative. However during examination and laboratory findings the patient was noted to have an elevated troponin at 0.14. No EKG changes. The patient was given aspirin as well as an injection of Lovenox. The patient will be admitted to the hospital for further workup and care. Patient made aware and agrees to plan. No further questions or concerns noted. Accepted by Dr. Fuchs. - Lab Data Lab results reviewed: Yes I reviewed the patient's lab results. Result diagrams: 05/20/18 20:11 05/20/18 20:11 Lab Results 05/20/18 05/20/18 05/20/18 Range/Units 20:11 20:11 20:11 WBC 10.1 (4.3-11.1) K/mcL RBC 3.54 L (3.82-4.97) M/mcL Hgb 10.9 L (11.5-15.4) g/dL Hct 33.3 L (35.3-44.9) % MCV 94.1 (83.0-100.0) fL MCH 30.8 (28.0-33.3) pg MCHC 32.7 (31.6-35.5) g/dL RDW 13.4 (11.5-14.5) % Plt Count 212 (140-400) K/mcL MPV 10.9 (9.4-12.4) fL Immature Gran % 0.5 (0-4) % Seg Neutrophils % 65.4 % Lymphocytes % 26.0 % Monocytes % 6.9 % Eosinophils % 0.8 % Basophils % 0.4 % Neutrophils # 6.6 (1.6-8.9) K/mcL Lymphocytes # 2.6 (0.6-4.6) K/mcL Monocytes # 0.7 (0.0-1.3) K/mcL Eosinophils # 0.1 (0.0-0.6) K/mcL Basophils # 0.0 (0.0-0.2) K/mcL PT 10.5 (9.4-12.1) Seconds INR 0.9 APTT 32.6 (26.0-36.0) Seconds Sodium 137 (136-145) mEq/L Potassium 3.3 L (3.5-5.1) mEq/L Chloride 107 (98-107) mEq/L Carbon Dioxide 26 (23-29) mEq/L BUN 12 (6-20) mg/dL Creatinine 0.60 (0.60-1.20) mg/dL Est GFR ( Amer) > 60 (> 60) Est GFR (Non-Af Amer) > 60 (> 60) BUN/Creatinine Ratio 20 (6-26) Glucose 171 H (70-105) mg/dL Calculated Osmolality 288 (280-300) Calcium 8.8 (8.6-10.3) mg/dL Troponin I 0.14 H* (< 0.04) ng/mL - Radiology Data Radiology results reviewed: Yes I reviewed the patient's radiology results. Chest X-Ray 05/20/18 19:43 IMPRESSION: Low lung volume study without acute process. D/ / Leta Nguyen MD / Leta Nguyen MD Interpreting Provider: Leta Nguyen MD - EKG Data EKG attestation: Yes I reviewed and interpreted this EKG. EKG results narrative: Heart rate 66 bpm. Normal sinus rhythm. No ST elevation or ST depression noted. EKG identical to EKG from 09/13/2018. No acute changes noted. Critical Care Time Critical Care Time: Yes Total Critical Care Time: 35 Attestation: Acute non-ST elevation NH Attestation Statement - Attestation Attestation: Dr. Jeffery note: Patient was seen with resident Dr. August Betancourt. Please see his charting for complete documentation. I spent [id number] time with the patient and agree with the patient's treatment and disposition. Patient is having left parast ernal chest pain with cough and inspiration for 3 days. No diaphoresis, no back pain or jaw pain no arm pain. She has been smoking more last few days since the of her mother. EKG shows no acute injury pattern. Denies prior heart catheterization. Elevated troponin noted. Direction of troponin is unclear as his symptoms been going on for days.
[2018-05-20 21:07] LABS: Basophils % 0.4 %; Eosinophils # 0.1 K/mcL (0.0-0.6); Eosinophils % 0.8 %; Hematocrit 33.3 % (35.3-44.9); Hemoglobin 10.9 g/dL (11.5-15.4); Immature Granulocytes % 0.5 % (0-4); Lymphocytes # 2.6 K/mcL (0.6-4.6); Mean Corpuscular HGB Conc 32.7 g/dL (31.6-35.5); Mean Corpuscular Hemoglobin 30.8 pg (28.0-33.3); Mean Corpuscular Volume 94.1 fL (83.0-100.0); Mean Platelet Volume 10.9 fL (9.4-12.4); Monocytes # 0.7 K/mcL (0.0-1.3); Monocytes % 6.9 %; Neutrophils # 6.6 K/mcL (1.6-8.9); Platelet Count 212 K/mcL (140-400); Red Blood Count 3.54 M/mcL (3.82-4.97); Red Cell Distribution Width 13.4 % (11.5-14.5); Segmented Neutrophils % 65.4 %
[2018-05-20 21:29] LABS: BUN/Creatinine Ratio 20 (6-26); Blood Urea Nitrogen 12 mg/dL (6-20); Calcium 8.8 mg/dL (8.6-10.3); Carbon Dioxide 26 mEq/L (23-29); Chloride 107 mEq/L (98-107); Glucose 171 mg/dL (70-105); Osmolality,Calculated 288 (280-300); Potassium 3.3 mEq/L (3.5-5.1); Sodium 137 mEq/L (136-145); eGFR For Non-African Americans > 60 (> 60)
[2018-05-20 21:39] LABS: Troponin I 0.14 ng/mL (< 0.04)
[2018-05-20] MEDS ORDERED: Aspirin 325 MG TABLET PO ONE (21:41)
[2018-05-20] MEDS ORDERED: *HR* Enoxaparin 100 MG/ML SYRINGE SQ STA (21:42)
[2018-05-20 21:43] LABS: INR 0.9; Prothrombin Time 10.5 Seconds (9.4-12.1)
[2018-05-20 21:45] LABS: Activated Partial Thrombo Time 32.6 Seconds (26.0-36.0)
[2018-05-21] MEDS ORDERED: Naloxone 0.4 MG/ML INJ IVP PRN (01:41)
[2018-05-21] MEDS ORDERED: D5% in Water 1,000 ML IVC PRN (04:05)
[2018-05-21] MEDS ORDERED: Dextrose Gel 15 GM/37.5 ML TUBE PO PRN ×2 (04:05)
[2018-05-21] MEDS ORDERED: *HR* Dextrose 50 % in Water (Syg) 50 ML SYRINGE IVP PRN (04:05)
[2018-05-21] MEDS ORDERED: Dextrose 4 GM Chewable Tablets PO PRN ×2 (04:05)
[2018-05-21] MEDS ORDERED: Albuterol 2.5 MG/3 ML NEBULIZER IH PRN (04:06)
[2018-05-21] MEDS ORDERED: Nicotine 21 MG PATCH.TD24 TD PRN (04:06)
--- NOTE | 2018-05-21 04:14 | Internal Med History&Physical ---
Date of Encounter: 05/21/18 Time of Encounter: 04:30 Internal Medicine - H&P: HPI Chief complaint: Chest pain Admitted From: Emergency Dept Plans for Post Hospital Care: Home History of present illness: Ms. Rodarte is a 53 year old female Patient presented to the emergency room with left-sided chest pain and shortness of breath. She had a similar episode about a month ago and was admitted to the hospital for stress testing. Results of the stress test are negative for ischemia and the patient was discharged home. Of note patient recently lost her mother and had her about a day ago. Pain started around this time. She denies radiation, as well as other complaints. In the emergency room patient's vital signs were within normal limits, CBC showed a hemoglobin of 10.9 down from 12.8 at the end of her previous admission. BMP was within normal limits aside from mildly low potassium of 3.3 and glucose of 171. Patient's initial troponin was 0.14, when previously her troponins during her other admission were undetectable. Patient's chest x-ray showed no acute process. EKG unchanged from previous. She received aspirin as well as Lovenox injection and her pain has resolved. Patient was admitted to the hospital for further management. Upon my evaluation, patient states that her pain has improved. She says that the was very difficult for her, and she took it pretty hard. She had increased smoking use during this time as well to help relieve stress. She thinks that she overdid it, and thought if anything she may have developed a pneumonia from being out at the . She denies abdominal pain, nausea, vomiting, diarrhea and constipation. Past Med Surg Social Fam HX - Past Medical History Medical history: asthma, COPD, coronary artery disease, diabetes, GERD, hyperlipidemia, hypertension Additional medical history: SLEEP APNEA Psychiatric history: anxiety, depression - Past Surgical History Surgical History: hysterectomy, other Additional surgical history: SINUS SURGERY. carpal tunnel surgery - Social History Smoking Status: Current every day smoker Packs per day: 0.5 Smokeless Tobacco Status: No Alcohol use: none Drug use: none - Family History Father Family Member Ethnicity: Non- Living Status: Still Living Hx Family Cardiac Disorders: Yes (Aneurysm, HLD, HTN) Hx Family Neurologic Disorders: Yes (Brain Aneurysm, CVA) Brother Family Member Ethnicity: Non- Living Status: Still Living Hx Family Cardiac Disorders: Yes (HTN, HLD) Hx Family GI Disorders: Yes (GERD) Mother Family Member Ethnicity: Non- Living Status: Hx Family Cardiac Disorders: Yes (Stents x2, CAD, HLD, HTN) Hx Family Endocrine Disorder: Yes (DM) Internal Medicine - H&P: Meds Lisinopril/Hydrochlorothiazide [Zestoretic 10-12.5 mg Tablet] 1 each PO DAILY 1 [History] clonazePAM [Klonopin] 0.5 mg PO BID PRN MDD PRN 01/02/15 [History] Atorvastatin Calcium [Lipitor] 80 mg PO HS 03/26/16 [History] Aspirin 162 mg PO DAILY 04/09/16 [History] Nitroglycerin [Nitrostat] 0.4 mg SL Q5M PRN 09/06/16 [History] Gabapentin [Neurontin] 800 mg PO TID 12/31/16 [History] Albuterol Sulfate [Ventolin Hfa] 2 puff IN Q6H PRN 04/16/18 [History] Cetirizine HCl 10 mg PO DAILY PRN 04/16/18 [History] DULoxetine [Cymbalta] 30 mg PO DAILY 04/16/18 [History] Fluticasone Propionate Nasal [Flonase] 1 spray NS DAILY PRN 04/16/18 [History] Montelukast [Singulair] 10 mg PO QPM PRN 04/16/18 [History] Mv,Ca,Min/Folic Acid/Vit K1 [One-A-Day Women's 50 Plus Tab] 1 tab PO DAILY 04/16/18 [History] Nicotine Patch [Nicoderm] 14 mg TD DAILY #30 patch.td24 04/16/18 [Rx] Omeprazole [PriLOSEC] 40 mg PO DAILY 04/16/18 [History] dilTIAZem HCl [Diltiazem 24Hr ER] 120 mg PO DAILY 04/16/18 [History] Allergy/AdvReac Type Severity Reaction Status Date / Time ciprofloxacin Allergy Itching Verified 05/20/18 18:42 cefdinir [From Omnicef] AdvReac Itching Verified 05/20/18 18:42 Panax ginseng AdvReac See Verified 05/20/18 18:42 Comments pantoprazole AdvReac Nausea Verified 05/20/18 18:42 ranitidine AdvReac See Verified 05/20/18 18:42 Comments rosuvastatin AdvReac "RESTLESS Verified 05/20/18 18:42 LEGS" Sulfa (Sulfonamide AdvReac Itching Verified 05/20/18 18:42 Antibiotics) All Systems PM: A 10-system review of systems was performed and is negative for pertinent findings except as documented above in the HPI. - Constitutional Vitals: Temp Pulse Resp BP Pulse Ox 97.5 F L 76 18 116/70 96 05/21/18 03:46 05/21/18 03:46 05/21/18 03:46 05/21/18 03:46 05/21/18 03:46 General appearance: Present: cooperative, A&O X 3, pleasant, no acute distress, answers questions appropriately Exam: - - Head Head exam: Present: normal inspection - Eye Eye exam: Present: EOMI, normal appearance - Respiratory Respiratory exam: Present: CTAB, wheezes. Absent: rales, respiratory distress, rhonchi - Cardiovascular Cardiovascular exam: Present: RRR. Absent: diastolic murmur, systolic murmur - GI/Abdominal GI/Abdominal exam: Present: normal bowel sounds, soft. Absent: tenderness - Extremities Exam Extremities exam: Present: warm, radial pulses palpable and symmetrical. Absent: pedal edema, tenderness - Neurological Exam Neurological exam: Present: motor sensory deficit, no focal deficits, strengths equal and symetr throughout. Absent: facial droop, speech deficit - Skin Skin exam: Present: dry, normal color, warm Internal Med - H&P Results - Labs CBC & Chem 7: 05/21/18 05:13 05/21/18 05:13 Labs: Short CBC 05/20/18 Range/Units 20:11 WBC 10.1 (4.3-11.1) K/mcL Hgb 10.9 L (11.5-15.4) g/dL Hct 33.3 L (35.3-44.9) % Plt Count 212 (140-400) K/mcL Neutrophils # 6.6 (1.6-8.9) K/mcL BMP 05/20/18 20:11 Sodium 137 Potassium 3.3 L Chloride 107 Carbon Dioxide 26 BUN 12 Creatinine 0.60 Glucose 171 H Calcium 8.8 Cardiac Enzymes 05/20/18 Range/Units 20:11 Troponin I 0.14 H* (< 0.04) ng/mL - Impressions ITS Impressions Chest X-Ray 05/20/18 19:43 IMPRESSION: Low lung volume study without acute process. D/ / Leta Nguyen MD / Leta Nguyen MD Interpreting Provider: Leta Nguyen MD - Assessment and plan (1) Chest pain Current Visit: No Status: Acute Assessment and plan: Chest pain improved, and troponin has trended down from 0.14-0.07. EKG also was unchanged from previous. Patient chest here one month ago and had a stress test and echo performed during that admission. Results of stress test was negative for ischemia and infarct. Results of echocardiogram: LVEF 55-60%. Mild concentric left ventricular hypertrophy. Normal left ventricular diastolic function. Normal right ventricular structure and function. No evidence of pulmonary hypertension. No significant valvular dysfunction. Continue to trend troponins Cardiology consult Cardiac monitoring Qualifiers: Chest pain type: unspecified Qualified Code(s): R07.9 - Chest pain, unspecified (2) Diabetes Current Visit: No Status: Chronic Assessment and plan: Patient has a new diagnosis of diabetes, but has not yet picked up her insulin. Last A1c was 9.1 about a month ago. Low-dose insulin sliding scale as needed in the hospital Nothing by mouth diet Monitor sugars every 6 hours Hold home meds Qualifiers: Diabetes mellitus type: type 2 Diabetes mellitus predatory animal exterminator insulin use: without predatory animal exterminator use Diabetes mellitus complication status: with hyperglycemia Qualified Code(s): E11.65 - Type 2 diabetes mellitus with hyperglycemia (3) COPD (chronic obstructive pulmonary disease) Current Visit: No Status: Chronic Assessment and plan: Patient's wheeziness improved after breathing treatments provided in the emergency room. Patient has significant smoking history. Continue breathing treatments Oxygen supplementation as needed Continue prednisone Qualifiers: Qualified Code(s): J44.9 - Chronic obstructive pulmonary disease, unspecified (4) Tobacco abuse Current Visit: Yes Status: Acute Assessment and plan: Patient declines nicotine patch (5) DVT prophylaxis Current Visit: No Status: Acute Assessment and plan: Subcutaneous heparin - Time Spent With Patient Total time spent is greater than 50% in coordination of care (as documented) at patient's floor/unit and/or counseling patient: Greater than 35 minutes
[2018-05-21] MEDS: Ipratropium/Albuterol Neb 3 ML IH SCH ×4 (04:21→22:32)
[2018-05-21 05:36] LABS: Hematocrit 34.5 % (35.3-44.9); Hemoglobin 11.4 g/dL (11.5-15.4); Mean Corpuscular Hemoglobin 30.5 pg (28.0-33.3); Mean Corpuscular Volume 92.2 fL (83.0-100.0); Mean Platelet Volume 11.2 fL (9.4-12.4); Platelet Count 210 K/mcL (140-400); Red Blood Count 3.74 M/mcL (3.82-4.97); Red Cell Distribution Width 13.3 % (11.5-14.5)
[2018-05-21 05:47] LABS: BUN/Creatinine Ratio 20 (6-26); Blood Urea Nitrogen 12 mg/dL (6-20); Calcium 8.9 mg/dL (8.6-10.3); Carbon Dioxide 22 mEq/L (23-29); Chloride 106 mEq/L (98-107); Glucose 309 mg/dL (70-105); Osmolality,Calculated 293 (280-300); Potassium 4.1 mEq/L (3.5-5.1); Sodium 136 mEq/L (136-145); eGFR For Non-African Americans > 60 (> 60)
[2018-05-21] MEDS ORDERED: Insulin LISPRO 300 UNITS/3 ML VIAL SQ SCH ×3 (06:00→21:00)
[2018-05-21] MEDS: predniSONE 20 MG TABLET PO SCH ×2 (10:13→12:41)
[2018-05-21] MEDS ORDERED: Insulin DETEMIR 100 UNIT/ML X5UNITS SQ SCH (10:15)
[2018-05-21] MEDS ORDERED: Acetaminophen 325 MG TABLET PO PRN (11:03)
--- NOTE | 2018-05-21 11:07 | Cardiology Consult Note ---
<Andres Gómez - Last Filed: 05/21/18 11:46> Date of Encounter: 05/21/18 Time of Encounter: 11:01 Assessment and Plan (1) Chest pain Current Visit: No Status: Acute C/o pleuritic type chest pain. Symptoms improved with prednisone and breathing treatment. Mild troponin, 0.14, 0.07, type II NSTEMi in setting COPD vs coronary spasm. Symptoms concerning for COPD. Patient under a lot of stress with passing of mother, her was yesterday. [facility] [place] 2016 showed minimal CAD and LCA vasospasm. Stress 04/28/18- neagtive for ischemia. TTE 03/2018- EF 65%. Limited TTE ordered to assess EF. Recommend continue mm with asa, and ccb. No statin d/t allergy. Smoking cessation stressed. Qualifiers: Chest pain type: unspecified Qualified Code(s): R07.9 - Chest pain, unspecified (2) Coronary artery spasm Current Visit: Yes Status: Acute Seen to have LCA coronary spasms on [facility] [place] in 2016. Continue cardizem. This pain is different than prior coronary spasms. (3) CAD (coronary artery disease) Current Visit: No Status: Chronic H/o minimal CAD. Continue healthy heart diet and exercise. asa 81 mg daily. Qualifiers: Coronary Disease-Associated Artery/Lesion type: [place] artery [place] vs. transplanted heart: [place]er heart Associated angina: angina presence unspeci fied Qualified Code(s): I25.10 - Atherosclerotic heart disease of [place] coronary artery without angina pectoris Discussion w patient/family: The assessment and plan as outlined above was discussed with the patient and/or family members who expressed understanding and agreement. All questions were answered. Thank you for involving us in the care of your patient. Please call with any questions. History of Present Illness Consult date: 05/21/18 Requesting physician: Travis Campos Consult reason: chest pain Chief complaint: Chest pain with inspiration History of present illness: Ms. Rodarte is a 53 year old female with past medical history of coronary vasospasms, minimal CAD on [facility] [place] in 2016, HTN,DM type II, COPD,OMA not on c-pap, and tobacco use who presented with chest pain. C/o chest pain with deep breaths. Symptoms started yesterday after her mother's . States she was having significant amount of increased stress with her mother passing. States she was smoking more. Work-up in the ED revealed elevated troponin so she was admitted for further work up. She does not feel her pain is the same as she had with coronary spasms. She was admitted one month ago with chest pain and underwent stress test that was found to be negative. TTE showed preserved EF. States her pain was different then also. She denies missing medication doses. Past Med Surg Social Fam HX - Past Medical History Medical history: asthma, COPD, coronary artery disease, diabetes, GERD, hyperlipidemia, hypertension Additional medical history: SLEEP APNEA Psychiatric history: anxiety, depression - Past Surgical History Surgical History: hysterectomy, other Additional surgical history: SINUS SURGERY. carpal tunnel surgery - Social History Smoking Status: Current every day smoker Packs per day: 0.5 Smokeless Tobacco Status: No Alcohol use: none Drug use: none - Family History Father Family Member Ethnicity: Non- Living Status: Still Living Hx Family Cardiac Disorders: Yes (Aneurysm, HLD, HTN) Hx Family Neurologic Disorders: Yes (Brain Aneurysm, CVA) Brother Family Member Ethnicity: Non- Living Status: Still Living Hx Family Cardiac Disorders: Yes (HTN, HLD) Hx Family GI Disorders: Yes (GERD) Mother Family Member Ethnicity: Non- Living Status: Hx Family Cardiac Disorders: Yes (Stents x2, CAD, HLD, HTN) Hx Family Endocrine Disorder: Yes (DM) Medications and Allergies Lisinopril/Hydrochlorothiazide [Zestoretic 10-12.5 mg Tablet] 1 each PO DAILY 01/02/15 [History] clonazePAM [Klonopin] 0.5 mg PO BID PRN 01/02/15 [History] Atorvastatin Calcium [Lipitor] 80 mg PO HS 03/26/16 [History] Aspirin 162 mg PO DAILY 04/09/16 [History] Nitroglycerin [Nitrostat] 0.4 mg SL Q5M PRN 09/06/16 [History] Gabapentin [Neurontin] 800 mg PO TID 12/31/16 [History] Albuterol Sulfate [Ventolin Hfa] 2 puff IN Q6H PRN 04/16/18 [History] Cetirizine HCl 10 mg PO DAILY PRN 04/16/18 [History] DULoxetine [Cymbalta] 30 mg PO DAILY 04/16/18 [History] Fluticasone Propionate Nasal [Flonase] 1 spray NS DAILY PRN 04/16/18 [History] Montelukast [Singulair] 10 mg PO QPM PRN 04/16/18 [History] Mv,Ca,Min/Folic Acid/Vit K1 [One-A-Day Women's 50 Plus Tab] 1 tab PO DAILY 04/16/18 [History] Omeprazole [PriLOSEC] 40 mg PO DAILY 04/16/18 [History] dilTIAZem HCl [Diltiazem 24Hr ER] 120 mg PO DAILY 04/16/18 [History] Insulin Glargine,Hum.rec.anlog [Basaglar Kwikpen U-100] 8 unit SQ DAILY 05/21/18 [History] Allergy/AdvReac Type Severity Reaction Status Date / Time ciprofloxacin Allergy Itching Verified 05/21/18 13:54 cefdinir [From Omnicef] AdvReac Itching Verified 05/21/18 13:54 rosuvastatin AdvReac "RESTLESS Verified 05/21/18 13:54 LEGS" Sulfa (Sulfonamide AdvReac Itching Verified 05/21/18 13:54 Antibiotics) All Systems Review: The remainder of the systems were reviewed and are negative Physical Examination Vital Signs Temp Pulse Resp BP Pulse Ox 05/21/18 06:29 97.6 F 70 16 111/73 97 05/21/18 04:21 16 97 05/21/18 03:46 97.5 F L 76 18 116/70 96 05/20/18 23:50 97.5 F L 68 17 118/74 95 05/20/18 23:12 68 20 121/68 96 05/20/18 21:55 64 22 107/69 98 05/20/18 20:50 65 20 116/67 100 05/20/18 20:11 18 98 05/20/18 19:36 98.7 F 66 18 114/72 96 05/20/18 19:22 98.7 F 66 18 114/72 96 05/20/18 18:42 97.7 F 76 20 126/76 98 Intake and Output 05/20/18 05/21/18 05/21/18 23:59 07:59 15:59 Intake Total 0 / 0 0 / 0 Output Total 0 / 0 0 / 0 Balance 0 / 0 0 / 0 Intake: Oral 0 / 0 0 / 0 Output: Urine 0 / 0 0 / 0 Other: Meal npo Weight 91.3 kg 91.3 kg Blood Glucose* 287 Patient Weight 05/21/18 23:59 Weight 91.3 kg General: Conversant, No Apparent Distress HEENT: Atraumatic, Normocephaly, Mucus Membranes Moist Neck: No JVD, Normal carotid pulses Cardiac: Reg Rate and Rhythm, Normal S1 and S2, No Murmur Lungs: Normal Breath Sounds, No Wheeze, Rales, Rhonchi Neuro: Alert and responsive, No focal deficits noted Abdomen: Soft, Non-Tender Skin: No rashes noted on visualized skin Musculoskeletal: No Chest Wall Tenderness Extremities: No Clubbing, No Cyanosis, No Edema, Normal Pulses Results 05/21/18 05:13 05/21/18 05:13 Lab Results 05/20/18 05/20/18 05/20/18 20:11 20:11 20:11 WBC 10.1 Hgb 10.9 L Hct 33.3 L Plt Count 212 INR 0.9 APTT 32.6 Sodium 137 Potassium 3.3 L Chloride 107 Carbon Dioxide 26 BUN 12 Creatinine 0.60 Glucose 171 H Calcium 8.8 Troponin I 0.14 H* 05/21/18 05/21/18 05/21/18 05:13 05:13 05:13 WBC 12.5 H Hgb 11.4 L Hct 34.5 L Plt Count 210 INR APTT Sodium 136 Potassium 4.1 Chloride 106 Carbon Dioxide 22 L BUN 12 Creatinine 0.59 L Glucose 309 H Calcium 8.9 Troponin I 0.07 H* - Imaging and Cardiology Stress Test: report reviewed Echo: report reviewed Cardiac cath: report reviewed - EKG Interpretation EKG results cardiology: personally reviewed Consult Discharge Plan - Plan Referrals: NONE,PCP [Primary Care Provider] - <Fatimah Garcia - Last Filed: 05/21/18 17:21> Date of Encounter: 05/21/18 - Attending Attestation Patient was seen and evaluated independently by me. Findings, assessment and plan were discussed at length with patient, questions answered. Agree with nurse practitioner's/resident's documentation. Addition as follows, 53 yoCF ho mild CAD, coronary artery spasm on [facility], DM, HTN, COPD, OMA CPAP night O2. P/w 2 days of cough/congestion and pleuritic chest pain, which responded to COPD exacerbation management. trop peak 0.1. no dynamic ECG change. VSS, B/L scattered rhonchi, RR, pedal edema. A: Type II STEMI COPD exacerbation Ho mild CAD with coronary spasm P: limited TTE if persistent pleuritic cp, r/o PE c/w ASA, diltiazem. Fatimah Garcia MD, PhD Assessment and Plan Discussion w patient/family: The assessment and plan as outlined above was discussed with the patient and/or family members who expressed understanding and agreement. All questions were answered. Thank you for involving us in the care of your patient. Please call with any questions. History of Present Illness History of present illness: Ms. Rodarte is a 53 year old female All Systems Review: The remainder of the systems were reviewed and are negative Physical Examination Vital Signs, Last 4 Hours Temp Pulse Resp BP Pulse Ox 05/21/18 15:48 98.1 F 70 16 127/68 98 05/21/18 15:43 96 Results 05/21/18 05:13 05/21/18 05:13 Lab Results 05/20/18 05/20/18 05/20/18 20:11 20:11 20:11 WBC 10.1 Hgb 10.9 L Hct 33.3 L Plt Count 212 INR 0.9 APTT 32.6 Sodium 137 Potassium 3.3 L Chloride 107 Carbon Dioxide 26 BUN 12 Creatinine 0.60 Glucose 171 H Calcium 8.8 Troponin I 0.14 H* 05/21/18 05/21/18 05/21/18 05:13 05:13 05:13 WBC 12.5 H Hgb 11.4 L Hct 34.5 L Plt Count 210 INR APTT Sodium 136 Potassium 4.1 Chloride 106 Carbon Dioxide 22 L BUN 12 Creatinine 0.59 L Glucose 309 H Calcium 8.9 Troponin I 0.07 H* 05/21/18 12:06 WBC Hgb Hct Plt Count INR APTT Sodium Potassium Chloride Carbon Dioxide BUN Creatinine Glucose Calcium Troponin I 0.06 H*
--- NOTE | 2018-05-21 11:20 | Event Note ---
Date of Encounter: 05/21/18 Time of Encounter: 09:40 Patient is feeling much better today. She continues to have pleuritic chest pain with deep breaths but it is more tolerable. Does have cough. She reports increasing stress over the past few weeks and that her mother recently and she had the yesterday. She reports that the prednisone helped her but she does not want to take it anymore because it causes a rise in her blood sugars. No fevers or chills reported overnight. Cardiology consult appreciated. Discussed plan of care with them. Troponins trended down. Will obtain respiratory infection panel.
[2018-05-21] MEDS: Diltiazem CD (24hr) 120 MG CAPSULE PO SCH (12:00)
[2018-05-21] MEDS: Aspirin 81 MG TAB.CHEW PO SCH (12:38)
[2018-05-21] MEDS: Insulin LISPRO 300 UNITS/3 ML VIAL SQ SCH ×2 (12:38→16:55)
[2018-05-21] MEDS: clonazePAM 0.5 MG TABLET PO PRN ×2 (12:38→23:17)
[2018-05-21 15:35] LABS: Adenovirus Not Detected (Not Detect); Bordetella Pertussis Not Detected (Not Detect); Chlamydophila pneumoniae Not Detected (Not Detect); Coronavirus 229E Not Detected (Not Detect); Coronavirus HKU1 Not Detected (Not Detect); Coronavirus NL63 Not Detected (Not Detect); Coronavirus OC43 Not Detected (Not Detect); Human Metapneumovirus Not Detected (Not Detect); Human Rhinovirus/Enterovirus Not Detected (Not Detect); Influenza A Subtype 2009 H1 Not Detected (Not Detect); Influenza A Untypeable Not Detected (Not Detect); Influenza B Not Detected (Not Detect); Mycoplasma pneumoniae Not Detected (Not Detect); Parainfluenza Virus 1 Not Detected (Not Detect); Parainfluenza Virus 2 Not Detected (Not Detect); Parainfluenza Virus 3 Not Detected (Not Detect); Parainfluenza Virus 4 Not Detected (Not Detect); Respiratory Syncytial Virus Not Detected (Not Detect)
[2018-05-21] MEDS ORDERED: Ondansetron 4 MG/2 ML VIAL IVP PRN (16:20)
[2018-05-21] MEDS ORDERED: Loratadine 10 MG TABLET PO PRN (17:19)
[2018-05-21] MEDS ORDERED: Fluticasone Propionate Nasal 50 MCG/SPRAY BOTTLE NS PRN (17:19)
[2018-05-21] MEDS ORDERED: *HR* Heparin 5,000 UNIT/ML VIAL SQ SCH (18:00)
[2018-05-21] MEDS: Gabapentin 400 MG CAPSULE PO SCH (20:10)
[2018-05-21] MEDS ORDERED: *HR* Heparin 5,000 UNIT/ML VIAL IVP PRN ×2 (23:03)
[2018-05-21] MEDS: Nitroglycerin 0.4 MG TAB.SUBL SL PRN ×2 (23:07→23:12)
--- NOTE | 2018-05-21 23:14 | Event Note ---
Date of Encounter: 05/21/18 Time of Encounter: 09:51 Notified by nurse of patient having chest pain and EKG being obtained. Assessed patient at bedside, states pain is currently improving but still present. Pain is similar to what she has previously experienced during this admission and other episodes were relieved without intervention. EKG shows new ST elevation in lead V2, and consistent ST elevation in lead V1 when compared to previous EKG. Called hydro station operator cardiology Dr Kim for recommendations, requested to contact interventional cardiology. Called hydro station operator interventional cardiology Dr Chaudhry who stated to try nitro for pain and start heparin drip, informed troponin is currently pending, he requested to be notified if pain does not resolve or if troponin is greater than 1.0, appreciate recommendations. Discussed plan with patient including risks and benefits of heparin drip and she agrees to proceed. EKG's and plan reviewed with Dr Fuchs.
[2018-05-21] MEDS ORDERED: Heparin 25,000 UNIT/500 ML D5W 25,000 UNIT/500 ML BAG IVC SCH (23:15)
[2018-05-22 00:13] LABS: Hematocrit 32.8 % (35.3-44.9); Hemoglobin 10.5 g/dL (11.5-15.4); Mean Corpuscular Hemoglobin 30.3 pg (28.0-33.3); Mean Corpuscular Volume 94.5 fL (83.0-100.0); Mean Platelet Volume 11.1 fL (9.4-12.4); Platelet Count 231 K/mcL (140-400); Red Blood Count 3.47 M/mcL (3.82-4.97); Red Cell Distribution Width 13.3 % (11.5-14.5)
[2018-05-22 00:33] LABS: Prothrombin Time 11.3 Seconds (9.4-12.1)
[2018-05-22] MEDS: Ipratropium/Albuterol Neb 3 ML IH SCH ×2 (04:39→10:37)
[2018-05-22] MEDS: Gabapentin 400 MG CAPSULE PO SCH (08:38)
[2018-05-22] MEDS: predniSONE 20 MG TABLET PO SCH (08:39)
[2018-05-22] MEDS: Diltiazem CD (24hr) 120 MG CAPSULE PO SCH (08:40)
[2018-05-22] MEDS: Aspirin 81 MG TAB.CHEW PO SCH (08:40)
[2018-05-22] MEDS: Insulin LISPRO 300 UNITS/3 ML VIAL SQ SCH ×2 (08:42→11:27)
[2018-05-22] MEDS ORDERED: Insulin DETEMIR 100 UNIT/ML X5UNITS SQ SCH ×2 (09:00→21:00)
[2018-05-22] MEDS ORDERED: Multivit/Ca/Min/Fe/FA 1 TAB TABLET PO SCH (09:00)
[2018-05-22] MEDS: clonazePAM 0.5 MG TABLET PO PRN (09:22)
--- NOTE | 2018-05-22 09:40 | Cardiology Progress Note ---
Date of Encounter: 05/22/18 Time of Encounter: 09:35 Assessment and Plan (1) Chest pain Current Visit: No Status: Acute C/o pleuritic type chest pain. Symptoms improved with prednisone and breathing treatment. Mild troponin, 0.14, 0.07,0.06, 0.05, type II NSTEMi in setting COPD vs coronary spasm. Symptoms concerning for COPD/ stress. Patient under a lot of stress with passing of mother, her was the day before she came to the hospital. C/o recurrent pain last night that she felt was more like her anginal pain. Concerning for possible vasospasms. Prior cardiac testing: [facility] 2017 showed minimal CAD and LCA vasospasm. Stress 04/28/18- negative for ischemia. TTE 03/2018- EF 65%. Limited TTE ordered to assess EF shows preserved EF and no WMA. There was a small pericardial effusion with no tamponade. Repeat EKG reviewed with Dr. Garcia- no significant change when compared to previous EKGs. Troponin continues to trend down. Discussed with patient and family. Mild troponin likely demand ischemia. Recommend continue mm of coronary vasospasms. Continue asa. Increase cardizem to 180 mg daily. Add imdur 30 mg daily. No statin d/t allergy. Smoking cessation stressed. High caffeine intake also discussed. Recommended to decrease intake. Continue healthy heart diet and exercise. Okay to d/c heparin gtt. Titrate medications (imdur and cardizem) as needed. Out-pt cardiology f/u. Qualifiers: Chest pain type: unspecified Qualified Code(s): R07.9 - Chest pain, unspecified (2) Coronary artery spasm Current Visit: Yes Status: Acute Seen to have LCA coronary spasms on [facility] in 2017. Continue cardizem with increase and add imdue. Smoking cessation. See plan above. (3) CAD (coronary artery disease) Current Visit: No Status: Chronic H/o minimal CAD. Continue healthy heart diet and exercise. asa 81 mg daily. Risk factor modification. Qualifiers: Coronary Disease-Associated Artery/Lesion type: [place] artery [place] vs. transplanted heart: [place] heart Associated angina: angina presence unspecified Qualified Code(s): I25.10 - Atherosclerotic heart disease of [place] coronary artery without angina pectoris Discussion w patient/family: The assessment and plan as outlined above was discussed with the patient and/or family members who expressed understanding and agreement. All questions were answered. Thank you for involving us in the care of your patient. Please call with any questions. Subjective Principal diagnosis: Chest pain Interval history: Ms. Rodarte reports having chest discomfort last night that felt more like the anginal pain she felt in the past. She describes it as a discomfort starting in the mid-epigastric area that felt like an intermittent squeezing sensation. The pain then radiated to her chest. She says she was ambulating all over the hospital before symptoms started. The pain increased once she sat down in her bed and she called for help. She was given SL NTG with relief. Heparin gtt was continued. She is currently pain free. She is tearful discussing the passing of her mother. Objective Vital Signs, Last 4 Hours Temp Pulse Resp BP Pulse Ox 05/22/18 07:11 98.1 F 63 16 120/59 97 General: Conversant, No Apparent Distress HEENT: Atraumatic, Normocephaly, Mucus Membranes Moist Neck: No JVD, Normal carotid pulses Cardiac: Reg Rate and Rhythm, Normal S1 and S2, No Murmur Lungs: Normal Breath Sounds, No Wheeze, Rales, Rhonchi Neuro: Alert and responsive, No focal deficits noted Abdomen: Soft, Non-Tender Skin: No rashes noted on visualized skin Musculoskeletal: No Chest Wall Tenderness Extremities: No Clubbing, No Cyanosis, No Edema, Normal Pulses Results 05/21/18 23:39 05/21/18 05:13 Lab Results 05/21/18 05/21/18 05/21/18 12:06 23:39 23:39 WBC 13.7 H Hgb 10.5 L Hct 32.8 L Plt Count 231 INR Troponin I 0.06 H* 0.05 H* 05/21/18 05/22/18 23:39 06:45 WBC Hgb Hct Plt Count INR 1.0 Troponin I 0.05 H* - Imaging and Cardiology Echo: report reviewed - EKG Interpretation EKG results cardiology: personally reviewed Consult Discharge Plan - Plan Referrals: NONE,PCP [Primary Care Provider] -
[2018-05-22] MEDS ORDERED: clonazePAM 0.5 MG TABLET PO PRN (09:45)
[2018-05-22] MEDS ORDERED: Isosorbide MONOnitrate (24 HR) 30 MG TAB.ER.24H PO SCH (09:45)
--- NOTE | 2018-05-22 15:07 | Discharge Summary ---
- NOTES TO OUTPATIENT PROVIDER Notes to Outpatient Provider: Patient with a history of coronary artery disease, COPD, diabetes, hypertension was hospitalized here after presenting with left- sided chest pain and shortness of breath. She did have mild elevation in her troponin at 0.14. Cardiology was consulted. Patient has previously had a coronary angiogram which showed coronary vessels spasm. As such she has been Cardizem. She was also wheezing on presentation and so was placed on bronchodilators and steroids. Patient has had intermittent chest pain once since presentation but has mostly been chest pain-free. Cardiology recommends increasing dose of Cardizem. Patient will be discharged later today if she continues to do well. She can follow-up with cardiology as outpatient. She does need to control her blood sugars better. Discussed plan of care with her primary care provider. Patient has been under a lot of stress recently with her mother's passing. She does have episodes of panic attacks and as such I am increasing her Klonopin to 1 mg twice daily as needed. This is only temporary and patient will need to follow up with her primary care provider and psychiatrist for further management. Orders not resulted at time of discharge: Pending orders 05/20/18 19:43 ECG 12 lead ECG [ECG] Stat Date of Encounter: 05/22/18 Time of Encounter: 15:04 - Discharge Diagnosis (1) Chest pain Priority: Primary Status: Acute Qualifiers: Chest pain type: unspecified Qualified Code(s): R07.9 - Chest pain, unspecified (2) Acute exacerbation of chronic obstructive airways disease Priority: Secondary Status: Acute (3) Coronary artery spasm Priority: Secondary Status: Acute (4) Tobacco abuse counseling Priority: Secondary Status: Acute (5) Diabetes Priority: Secondary Status: Chronic Qualifiers: Diabetes mellitus type: type 2 Diabetes mellitus nursing home insulin use: without termite control technician use Diabetes mellitus complication status: with hyperglycemia Qualified Code(s): E11.65 - Type 2 diabetes mellitus with hyperglycemia (6) HTN (hypertension) Priority: Secondary Status: Chronic Qualifiers: Hypertension type: essential hypertension Qualified Code(s): I10 - Essential (primary) hypertension (7) DVT prophylaxis Priority: Secondary Status: Acute Hospital course: Ms. Rodarte is a 53 year old female Patient with a history of coronary artery disease, COPD, diabetes, hypertension was hospitalized here after presenting with left-sided chest pain and shortness of breath. She did have mild elevation in her troponin at 0.14. Cardiology was consulted. Patient has previously had a coronary angiogram which showed coronary vessels spasm. As such she has been Cardizem. She also had a negative stress test done last month. She was also wheezing on presentation and so was placed on bronchodilators and steroids. Patient has had intermittent chest pain once since presentation but has mostly been chest pain-free. Cardiology recommends increasing dose of Cardizem. Patient will be discharged later today if she continues to do well. She can follow-up with cardiology as outpatient. She does need to control her blood sugars better. Discussed plan of care with her primary care provider. Patient has been under a lot of stress recently with her mother's passing. She does have episodes of panic attacks and as such I am increasing her Klonopin to 1 mg twice daily as needed. This is only temporary and patient will need to follow up with her primary care provider and psychiatrist for further management. Discharge discussed with: patient, rewards consultant Time spent discussing smoking cessation with patient: 3 to 10 minutes - Time Spent with Patient Total time spent providing and/or coordinating discharge services: Greater than 30 minutes (32 min) - Discharge Medications Prescriptions: New Diltiazem CD (24hr) [Cardizem CD] 180 mg PO DAILY #30 cap.er.24h Isosorbide MONOnitrate (24 HR) [Imdur] 30 mg PO DAILY #30 tab.er.24h Lisinopril [Zestril] 5 mg PO DAILY #30 tablet predniSONE [PredniSONE] 30 mg PO DAILY #12 tablet Continue Atorvastatin Calcium [Lipitor] 80 mg PO HS Aspirin 162 mg PO DAILY Nitroglycerin [Nitrostat] 0.4 mg SL Q5M PRN PRN Reason: Chest Pain Gabapentin [Neurontin] 800 mg PO TID DULoxetine [Cymbalta] 30 mg PO DAILY Cetirizine HCl 10 mg PO DAILY PRN PRN Reason: Allergy Symptoms Albuterol Sulfate [Ventolin Hfa] 2 puff IN Q6H PRN PRN Reason: Bronchospasm Fluticasone Propionate Nasal [Flonase] 1 spray NS DAILY PRN PRN Reason: Allergy Symptoms Montelukast [Singulair] 10 mg PO QPM PRN PRN Reason: Allergy Symptoms Mv,Ca,Min/Folic Acid/Vit K1 [One-A-Day Women's 50 Plus Tab] 1 tab PO DAILY Omeprazole [PriLOSEC] 40 mg PO DAILY Changed clonazePAM [Klonopin] 1 mg PO BID PRN 10 Days #20 tablet PRN Reason: Anxiety Insulin Glargine,Hum.rec.anlog [Basaglar Kwikpen U-100] 15 unit SQ DAILY #0 Discontinued dilTIAZem HCl [Diltiazem 24Hr ER] 120 mg PO DAILY Lisinopril/Hydrochlorothiazide [Zestoretic 10-12.5 mg Tablet] 1 each PO DAILY Home Medications: Atorvastatin Calcium [Lipitor] 80 mg PO HS 03/26/16 [History] Aspirin 162 mg PO DAILY 04/09/16 [History] Nitroglycerin [Nitrostat] 0.4 mg SL Q5M PRN 09/06/16 [History] Gabapentin [Neurontin] 800 mg PO TID 12/31/16 [History] Albuterol Sulfate [Ventolin Hfa] 2 puff IN Q6H PRN 04/16/18 [History] Cetirizine HCl 10 mg PO DAILY PRN 04/16/18 [History] DULoxetine [Cymbalta] 30 mg PO DAILY 04/16/18 [History] Fluticasone Propionate Nasal [Flonase] 1 spray NS DAILY PRN 04/16/18 [History] Montelukast [Singulair] 10 mg PO QPM PRN 04/16/18 [History] Mv,Ca,Min/Folic Acid/Vit K1 [One-A-Day Women's 50 Plus Tab] 1 tab PO DAILY 04/16/18 [History] Omeprazole [PriLOSEC] 40 mg PO DAILY 04/16/18 [History] Diltiazem CD (24hr) [Cardizem CD] 180 mg PO DAILY #30 cap.er.24h 05/22/18 [Rx] Insulin Glargine,Hum.rec.anlog [Basaglar Kwikpen U-100] 15 unit SQ DAILY #0 05/22/18 [Rx] Isosorbide MONOnitrate (24 HR) [Imdur] 30 mg PO DAILY #30 tab.er.24h 05/22/18 [Rx] Lisinopril [Zestril] 5 mg PO DAILY #30 tablet 05/22/18 [Rx] clonazePAM [Klonopin] 1 mg PO BID PRN 10 Days #20 tablet 05/22/18 [Rx] predniSONE [PredniSONE] 30 mg PO DAILY #12 tablet 05/22/18 [Rx] Allergies/Adverse Reactions: Allergy/AdvReac Type Severity Reaction Status Date / Time ciprofloxacin Allergy Itching Verified 05/21/18 13:54 cefdinir [From Omnicef] AdvReac Itching Verified 05/21/18 13:54 rosuvastatin AdvReac "RESTLESS Verified 05/21/18 13:54 LEGS" Sulfa (Sulfonamide AdvReac Itching Verified 05/21/18 13:54 Antibiotics) Date of admission: 05/20/18 23:09 Primary care physician: PCP NONE Consults: 05/21/18 04:06 Consult to Nurse Navigator [CONS] Routine Comment: 05/21/18 08:27 Consult to Cardiology [CONS] Routine Comment: Consulting Provider: Cardiology Khushi Reason for Consult: Troponin elevation/ Left chest pain; Negative stress test 1 month back. Call Completed: No Discharging clinician: Travis Campos Anticipated date of discharge: 05/22/18 - Constitutional Vitals: Temp Pulse Resp BP Pulse Ox 98.0 F 59 16 106/59 99 05/22/18 11:06 05/22/18 11:06 05/22/18 11:06 05/22/18 11:06 05/22/18 11:06 General appearance: Present: cooperative, A&O X 3, pleasant, no acute distress, answers questions appropriately Exam: . - Respiratory Respiratory exam: Present: CTAB. Absent: accessory muscle use, rales, rhonchi, wheezes - Cardiovascular Cardiovascular exam: Present: RRR, +S1, +S2. Absent: diastolic murmur, gallop, rubs, systolic murmur - GI/Abdominal GI/Abdominal exam: Present: normal bowel sounds, soft, no peritoneal signs. Absent: distended, tenderness - Extremities Exam Extremities exam: Present: warm, radial pulses palpable and symmetrical. Absent: calf tenderness, cyanotic, pedal edema - Neurological Exam Neurological exam: Present: CN II-XII intact, oriented X3, no focal deficits. Absent: facial droop, speech deficit - Patient Status Disposition: Home, Self-Care Condition: Undetermined Functional capacity at discharge: independent ambulation Overall status at discharge: patient is progressing back to baseline - Discharge Instructions Instructions: Chronic Obstructive Pulmonary Disease (DC) Follow Up With: NONE,PCP [Primary Care Provider] - (in 1-2 weeks) Martha Mckeon MD [Partnered Physician] - (in 1-2 weeks) - Diet and Activity Activity: increase activity as tolerated Diet: diabetic diet, low fat, low cholesterol, low salt diet
[2018-05-22 16:03] VITALS: BP 126/70
[2018-05-23] MEDS ORDERED: predniSONE 10 MG TABLET PO SCH (09:00)
[2018-05-23] MEDS ORDERED: Diltiazem CD (24hr) 180 MG CAPSULE PO SCH (09:00)
--- NOTE | 2018-05-23 20:34 | Electrocardiograph Report ---
[place] [id number] Test Date: 2018-05-21 Pat Name: Jacquelyn Rodarte Department: 111 Room: [facility] Gender: F Core Stacker: : [id number] Requested By: Christy Simons Order Number: [id number] Reading MD: Fatimah Garcia Measurements Intervals [place] Rate: 63 P: 37 NM: 169 QRS: -10 QRSD: 126 T: 15 QT: 441 QTc: 449 Interpretive Statements SINUS RHYTHM MODERATE INTRAVENTRICULAR CONDUCTION DELAY Electronically Signed On 05-23-2018 20:32:51 EST by Fatimah Garcia
== END 2018-05-22 16:42 | disposition home or self-care (01) ==
LOC: EMEROOARM 18:39 → 2NENU 18:39
PROVIDERS: ADMIT Family Medicine; ATTEND Family Medicine

== ENCOUNTER 2019-08-13 19:05 | Observation (INO) ==
[2019-08-13] MEDS ORDERED: Isovue-370 500 ML BOTTLE IVP ONE (19:17)
[2019-08-13 19:30] LABS: Hematocrit 41.2 % (35.3-44.9); Hemoglobin 13.6 g/dL (11.5-15.4); Mean Corpuscular Hemoglobin 31.3 pg (28.0-33.3); Mean Corpuscular Volume 94.9 fL (83.0-100.0); Mean Platelet Volume 10.3 fL (9.4-12.4); Platelet Count 261 K/mcL (140-400); Red Blood Count 4.34 M/mcL (3.82-4.97); Red Cell Distribution Width 13.6 % (11.5-14.5); White Blood Count 12.8 K/mcL (4.3-11.1)
[2019-08-13 19:40] LABS: INR 0.9; Prothrombin Time 9.7 Seconds (9.4-12.1)
[2019-08-13 19:43] LABS: Activated Partial Thrombo Time 35.9 Seconds (26.0-36.0)
[2019-08-13 20:15] LABS: BUN/Creatinine Ratio 22 (6-26); Blood Urea Nitrogen 16 mg/dL (6-20); Calcium 9.5 mg/dL (8.6-10.3); Carbon Dioxide 28 mEq/L (23-29); Chloride 101 mEq/L (98-107); Glucose 106 mg/dL (70-105); Osmolality,Calculated 282 (280-300); Potassium 3.9 mEq/L (3.5-5.1); Sodium 135 mEq/L (136-145); Troponin I < 0.03 ng/mL (< 0.04); eGFR For African Americans > 60 (> 60); eGFR For Non-African Americans > 60 (> 60)
[2019-08-14] MEDS ORDERED: Naloxone 0.4 MG/ML INJ IVP PRN (04:43)
[2019-08-14] MEDS ORDERED: D5% in Water 1,000 ML IVC PRN (04:45)
[2019-08-14] MEDS ORDERED: Dextrose Gel 15 GM/37.5 ML TUBE PO PRN ×2 (04:45)
[2019-08-14] MEDS ORDERED: *HR* Dextrose 50 % in Water (Syg) 50 ML SYRINGE IVP PRN (04:45)
[2019-08-14 06:17] LABS: Hematocrit 43.6 % (35.3-44.9); Hemoglobin 14.4 g/dL (11.5-15.4); Mean Corpuscular Hemoglobin 31.8 pg (28.0-33.3); Mean Corpuscular Volume 96.2 fL (83.0-100.0); Mean Platelet Volume 10.5 fL (9.4-12.4); Platelet Count 268 K/mcL (140-400); Red Blood Count 4.53 M/mcL (3.82-4.97); Red Cell Distribution Width 13.8 % (11.5-14.5)
[2019-08-14 06:39] LABS: BUN/Creatinine Ratio 20 (6-26); Blood Urea Nitrogen 16 mg/dL (6-20); Calcium 9.5 mg/dL (8.6-10.3); Carbon Dioxide 30 mEq/L (23-29); Chloride 102 mEq/L (98-107); Glucose 101 mg/dL (70-105); Osmolality,Calculated 289 (280-300); Potassium 4.1 mEq/L (3.5-5.1); Sodium 139 mEq/L (136-145); eGFR For African Americans > 60 (> 60); eGFR For Non-African Americans > 60 (> 60)
[2019-08-14 06:41] LABS: Magnesium 2.2 mg/dL (1.6-2.6); Phosphorous 5.3 mg/dL (2.7-4.5)
[2019-08-14] MEDS: Insulin LISPRO 300 UNITS/3 ML VIAL SQ SCH ×2 (07:17→12:06)
[2019-08-14] MEDS ORDERED: Aspirin Enteric Coated 81 MG Tablet PO SCH (09:00)
[2019-08-14 11:09] VITALS: BP 141/72
[2019-08-14] MEDS ORDERED: *HR* OxyCODONE/APAP 5/325 TABLET PO PRN (11:15)
[2019-08-14] MEDS ORDERED: Loratadine 10 MG TABLET PO PRN (11:15)
[2019-08-14] MEDS ORDERED: Nitroglycerin 0.4 MG TAB.SUBL SL PRN (11:15)
[2019-08-14] MEDS ORDERED: DilTIAZem CD (24hr) 180 MG CAP.ER.24H PO SCH (11:15)
[2019-08-14] MEDS ORDERED: Fluticasone Propionate Nasal 50 MCG/SPRAY BOTTLE NS PRN (11:15)
[2019-08-14] MEDS ORDERED: Gabapentin 400 MG CAPSULE PO SCH (11:30)
[2019-08-14] MEDS ORDERED: Insulin LISPRO 300 UNITS/3 ML VIAL SQ SCH (21:00)
[2019-08-15] MEDS ORDERED: Multivit/Ca/Min/Fe/FA 1 TAB TABLET PO SCH (09:00)
== END 2019-08-14 13:02 | disposition home or self-care (01) ==
LOC: 3BNU 19:05 → EMEROOARM 19:05 → SUATTDRO 20:38 → 3BNU 21:11
PROVIDERS: ADMIT Family Medicine; ATTEND Internal Medicine